=== PATIENT | male | born 1960 | race Caucasian/White ===

== ENCOUNTER 2025-01-08 12:22 | Outpatient (CLI) | payer BC, SELFPAY ==
--- NOTE | ~2025-01-08 | CT_ITS ---
CLINICAL INDICATION: Left flank pain COMPARISON: None. TECHNIQUE: Multiple contiguous axial images of the abdomen and pelvis were performed without the admi nistration of intravenous contrast The dose-length product (DLP) was 783.90 mGy-cm. Automated exposure control and iterative reconstruction technique were employed. FINDINGS/OBSERVATIONS: Visualized lower thorax: Subcentimeter pulmonary nodules detected bilaterally. 4.8 mm within the left lower lobe (axial series, image 26). 4.6 mm in the right lower lobe (axial series, image 28). The remainder of the bilateral lung bases are clear. Follow-up with a dedicated chest CT is suggested unless this is a known finding. The heart is of normal size, without pericardial effusion. Small hiatal hernia is present. Liver: The liver demonstrates homogeneous attenuation and is enlarged measuring 22 cm in longitudinal dimens ion. Gallbladder and biliary system: The gallbladder is only minimally distended, and otherwise unremarkable. Pancreas: Limited evaluation of the pancreas secondary to the lack of intravenous contrast. Spleen: The spleen demonstrates homogeneous attenuation and is enlarged measuring 13 cm in longitudinal dimen kiera. Kidneys: 9 mm nonobstructing calculus within the lower pole of the right kidney. The remainder of the right kidney is unremarkable. The left kidney, collecting system, and ureter are unremarkable. Adrenal glands: Unremarkable. Gastrointestinal tract: Colonic diverticulosis without surrounding inflammatory change. Fecal stasis within the colon. Appendix: The air-filled appendix is of normal caliber (axial series, images 133 through 145) Vasculature: Unremarkable. Lymph nodes: No pathologically enlarged or morphologically suspicious lymph nodes within the retroperitoneum or at the root of the mesentery. Pelvic structures: The bladder is decompressed, limiting its evaluation. The prostate gland is not enlarged. Body wall and musculoskeletal: Small fat-containing umbilical hernia. Degenerative disease within the lumbosacral spine at the level of L5/S1 with osteophyte formation, di sc space narrowing, endplate changes and vacuum phenomena. IMPRESSION: 9 mm nonobstructing calculus within the lower pole of the right kidney. No acute pathology detected within the abdomen or pelvis, as detailed above. Hepatosplenomegaly. Reviewed, dictated and finalized at location A.
--- NOTE | ~2025-01-08 | XR_ITS ---
EXAMINATION: XR abdomen/kub 1V DATE: 01/08/2025 12:54 INDICATION: Calcium kidney stone. TECHNIQUE: A supine view of the abdomen on 2 radiographs was obtained. COMPARISON: CT abdomen and pelvis 01/08/2025 FINDINGS: There are no dilated loops of bowel. There is a 9 mm stone in right kidney. IMPRESSION: 1. 9 mm stone in right kidney. Reviewed, dictated and finalized at location B.
--- OUTSIDE RECORDS SUMMARY | 2025-01-08 13:58 | XMS_ITS | Encounter Summary ---
Author Organization [facility] Health Address [address] [place] [address] Care Team Providers Care Logging Operations Inspector Name Role Phone Marcial Dalal Primary Care Provider Lexy Srivastava MD Primary Care Provider [phone] Reason for Visit * Reason Comments Refill Request Encounter Details Date Type Department Care Team (Late st Contact Info) Description 04/11/2023 Refill [facility] [address] [phone] Heather Mcelroy APRN-CNP [address] [address] Refill Request Social History Tobacco Use Types Packs/Day Years Used Date Smoking Tobacco: Never Smokeless Tobacco: Never Alcohol Use Standard Drinks/Week Comments No 0 (1 standard drink = 0.6 oz pur e alcohol) PHQ-2 Answer Date Recorded PHQ2 TOTAL SCORE 0 03/20/2023 Sex and Gender Information Value Date Recorded Sex Assigned at Not on file Gender Identity Not on file Sexual Orientation Not on file COVID-19 Exposure Response Date Recorded In the last 10 days, have yo u been in contact with someone who was confirmed or suspected to have Coronavirus/COVID-19? No / Unsure 03/20/2023 7:16 AM CDT documented as of this encounter Plan of Treatment Upcoming Encounters Date Type Department Care Team (Late st Contact Info) Description 03/16/2025 10:40 AM CDT Office Visit [facility] - [facility] Medicine [address] [place] [phone] Lexy Srivastava MD [address] [place] [address] documented as of this encounter Visit Diagnoses Diagnosis Seasonal allergies Allergic rhinitis, cause unspecified Acute cough documented in this encounter Additional Health Concerns Infection Onset Date Last Indicated Resolved Time COVID-19 Under Investigation 06/08/2023 06/08/2023 06/09/2023 1:46 AM CDT COVID-19 Confirmed 06/08/2023 06/08/2023 4:33 AM CDT documented as of this encounter Care Teams Logging Operations Inspector Relationship Specialty Start Date End Date Marcial Dalal APRN-RELIGIOUS EDUCATION COORDINATOR [address] [place] [phone] PCP - General Nurse Practitioner Adult Health 01/29/23 12/14/24 Lexy Srivastava MD [address] [place] [address] PCP - General Internal Medicine 12/15/24 documented as of this encounter
--- OUTSIDE RECORDS SUMMARY | 2025-01-08 13:58 | XMS_ITS | Patient Health Record ---
Author Organization [facility] Address [address] [place] [address] Care Team Providers Care Authorization Representative Name Role Phone Lexy Srivastava Primary Care Provider Pelon Marcus Unavailable [phone] ALLERGIES No Known Allergies RESULTS Component Value Reference Range Notes X ray : Lumbar Spine 3 views , AP, Lateral, Spot Reviewed date:12/09/2024 02:59:06 PM Interpretation:218 Performing Lab: Notes/Report: 218 REASON FOR REFERRAL Reason Eval and Treat Diagnosis 1 Low back pain at [facility] (M54.50) Referral Organization [facility] Referring Provider First Name Pelon Referring Provider Last Name Thais Referring Provider Speciality Orthopedic Surgery Referred Provider Specialty Physical The [facility] Referral Priority Routine MEDICATIONS Medication SIG (Take, Route, Fr equency, Duration) Notes Start Date End Date Status Carbidopa-Levodopa A ctive Zinc Active Vitamin D3 Active Turmeric Active Multivitamin Active SOCIAL HISTORY Tobacco Use: Social History Observation Description Date Details (start date - stop date) Never Smoker NA - NA Sex Assigned At : Social History Observation Description Sex Assigned At Unknown Tobacco Use/Smoking Question Answer Notes Are you a nonsmoker Alcohol Screen Question Answer Notes Did you have a drink containing alcohol in the p ast year? No Points 0 Interpretation Negative VITAL SIGNS Height 72 in 12/09/2024 Weight 280 lbs 12/09/2024 BMI 37.97 kg/m2 12/09/2024 PROCEDURES Procedure Date Ordered Date Performed Result Body Sit e Lumbar Selective Nerve Root Injection 12/09/2024 completed Encounters Encounter Location Date Provider Diagnosis [facility] [address] [place] [address] 12/09/2024 Pelon Thais Other low back pain M54.59 and Lumbar radiculopathy M54.16 ASSESSMENTS Encounter Date Diagnosis Assessment Notes Treatment Notes Treatment Clinical Notes 12/09/2024 Other low back pain (ICD-10 - M54.59) 12/09/2024 Lumbar radiculopathy (ICD-10 - M54.16) PLAN OF TREATMENT No Information Insurance Providers Payer Name Payer Address Payer Phone Subscriber Number Group Number Insured Name Patient Relationship to Insured Coverage Start Date Coverage End Date Mikayla [facility] [address] [place] [address] [id number] Ezra Shelby Self - patient is the insured MEDICAL (GENERAL) HISTORY Medical History History ICD Code Parkinson's Surgical History Surgery Date(Month/Year) Knee Arthroplasty Cataract Surgery DBS for Parkinson's Hospitalization History Reason Date(Month/Year) As per above.
--- OUTSIDE RECORDS SUMMARY | 2025-01-08 13:58 | XMS_ITS | Clinical Summary ---
Author Organization [facility] Address [address] [place] [address] Care Team Providers Care Leadite Heater Name Role Phone Unavailable Primary Care Provider Unavailabl e Social History Tobacco Use Types Packs/Day Years Used Date Smoking Tobacco: Never Assessed Sex and Gender Information Value Date Recorded Sex Assigned at Not on file Gender Identity Not on file Sexual Orientation Not on file Plan of Treatment Health Maintenance Due Date Last Done Comments HIV Screening 1960 Hepatitis C Screening ages 18 to 79 once 1960 MMR VACCINES (1 of 1 - Standard series) 1960 DEPRESSION SCREENING 1971 ADULT TETANUS 1978 LIPID TESTING 1994 Colon Cancer Screening 2004 Zoster Vaccine (Recombinant Vaccine) (1 of 2) 2009 Influenza Vaccine 05/29/2024 08/01/2023, , 08/16/2020, Additional history exists COVID-19 Immunization ( season) 2024 Fall Risk Assessment 2024 YEARLY WELLNESS EXAM 03/07/2025 03/07/2024, 10/25/2021, 10/21/2020 RSV Vaccines (1 - 1-dose 75+ series) 2034 Pneumococcal Vaccine: 65+ Years Completed 05/16/2022 Pneumococcal Vaccine: Peds(0 to 5 Years) & At-Risk Patients (6 to 64 Years) Aged Out 05/16/2022 No longer eligi ble based on patient's age to complete this topic HEPATITIS A VACCINES Aged Out No long er eligible based on patient's age to complete this topic HEPATITIS B VACCINES Aged Out No long er eligible based on patient's age to complete this topic HIB VACCINES Aged Out No longer eligi ble based on patient's age to complete this topic HPV VACCINES Aged Out No longer eligi ble based on patient's age to complete this topic IPV VACCINES Aged Out No longer eligi ble based on patient's age to complete this topic MENINGOCOCCAL VACCINE Aged Out No jessica mikhail eligible based on patient's age to complete this topic ROTAVIRUS VACCINES Aged Out No longer eligible based on patient's age to complete this topic
--- OUTSIDE RECORDS SUMMARY | 2025-01-08 13:58 | XMS_ITS | Patient Health Summary ---
Author Organization [facility] Address [address] [place] [address] Care Team Providers Care Web Machine Tender Name Role Phone Lexy Srivastava MD Primary Care Provider [phone] Note from [facility],non-owned Affiliates and Associated Physician Practices is amultiple site organization consisting of ambulatory clinics and hospital sitesin [place], [place], [place] and [place]. This disclosure is being madepursuant to the Care Everywhere program and may not contain all information available regarding this patient. Last updated 18.[facility] Allergies No known active allergies Medications * Be aware that medications may not be up to date on this document. Alwaysverify current medications with the patient. * carbidopa-levodopa (Sinemet) 25-100 MG tablet Take 1 (one) tablet by mouth as directed 3 tabs 6 times a day Neuro prescribes * folic acid-vit B6-vit B12 (Folbee) 2.5-25-1 MG tablet(Started 03/07/2024) Take 1 (one) tablet by mouth once daily 1 refill by 03/07/2025 * predniSONE (Deltasone) 10 MG tablet(Started 09/27/2024) 40 mg po x 1 day, 30 mg po x 3 days, 20 mg po x 3 days, 10 mg po x 3 days * silodosin (Rapaflo) 8 MG capsule(Started 12/04/2024) TAKE 1 (ONE) CAPSULE BY MOUTH DAILY WITH BREAKFAST 1 refill by 12/04/2025 * Cholecalciferol 125 MCG (5000 UT) TBDP Take by mouth. 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 09/29/2019 Resolved Problems Problem Noted Date Diagnosed Date Resolved Date Ataxia 09/29/2019 03/09/2023 Elevated LFTs 05/02/2016 03/09/2023 Sleep apnea 12/06/2015 03/09/2023 Gastroesophageal reflux dise ase without esophagitis 07/27/2015 10/25/2021 Obesity 07/27/2015 03/09/2023 Hyperuricemia 07/27/2015 03/09/2023 Asthma, exercise induced 01/04/2015 Gout 08/04/2013 03/09/2023 Immunizations * COVID MODERNA 12+ yr 50mcg/0.5mL(Given 10/08/2023) * COVID MODERNA BIVALENT 12Y+ 50MCG/0.5ML(Given 07/20/2022) * Covid Moderna primary monovalent 12+ yr 0.5mL(Given 02/06/2022, 08/17/2021, 12/21/2020, 11/17/2020) * HEP A VACCINE, ADULT(Given 07/02/2020) * HEP A/HEP B(Given 05/27/2018) * INFLUENZA VACCINE(Given 08/17/2021, 08/16/2020, 07/21/2019, 08/08/2018, 08/14/2017, 08/11/2016, 09/06/2015, 07/28/2013) * INFLUENZA VACCINE, QUADR. (FLUZONE; FLULAVAL; FLUARIX; AFLURIA QUADRIVALENT; 6MO+), 0.5 ML (IIV4)(Given 08/01/2023, 07/02/2020, 07/27/2018, 07/29/2015) * INFLUENZA VACCINE, TRIV. (FLUZONE; FLULAVAL; FLUARIX; AFLURIA TRIVALENT; 6MO+), 0.5 ML (IIV3)(Given 09/05/2024) * PNEUMOCOCCAL PCV20 CONJ VAC IM(Given 05/16/2022) * Zoster Hzv Vacc Recombinant Inj Im(Given 10/21/2019, 08/01/2019, 04/21/2019) Social History Tobacco Use Types Packs/Day Years Used Date Smoking Tobacco: Never Smokeless Tobacco: Never Tobacco Cessation:Counseling Given: Yes Alcohol Use Standard Drinks/Week Comments No 0 (1 standard drink = 0.6 oz pur e alcohol) PHQ-2 Answer Date Recorded Patient Health Questionnaire-2 Score 1 12/15/2024 Sex and Gender Information Value Date Recorded Sex Assigned at Not on file Gender Identity Not on file Sexual Orientation Not on file Last Filed Vital Signs Vital Sign Reading Time Taken Comments Blood Pressure 111/79 12/15/2024 1:10 PM MANAGER ERP Pulse 75 12/15/2024 1:10 PM MANAGER ERP Temperature 36.7 C (98 F) 12/15/2024 1:10 PM MANAGER ERP Respiratory Rate 18 11/09/2023 10:1 3 AM MANAGER ERP Oxygen Saturation 96% 12/15/2024 1:10 PM MANAGER ERP Inhaled Oxygen Concentration - - Weight 130.9 kg (288 lb 9.6 oz) 12/15/2024 1:10 PM MANAGER ERP Height 182.9 cm (6') 12/15/2024 1:10 PM MANAGER ERP Body Mass Index 39.14 12/15/2024 1:10 PM MANAGER ERP Procedures * US ABDOMEN LIMITED(Performed 12/25/2024) Performed for Elevated liver enzymes * ERYTHROCYTE SEDIMENTATION RATE(Performed 12/16/2024) Performed for Fatigue, unspecified type * VITAMIN D 25-HYDROXY(Performed 12/16/2024) Performed for Encounter to establish care, Fatigue, unspecified type, Parkinson'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 (HCC) * LIPID PROFILE(Performed 12/16/2024) Performed for Encounter to establish care, Fatigue, unspecified type, Parkinson'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 (HCC) * HEMOGLOBIN A1C(Performed 12/16/2024) Performed for Encounter to establish care, Fatigue, unspecified type, Parkinson'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 (HCC) * COMPREHENSIVE METABOLIC PANEL(Performed 12/16/2024) Performed for Encounter to establish care, Fatigue, unspecified type, Parkinson'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 (HCC) * CBC W AUTO DIFFERENTIAL(Performed 12/16/2024) Performed for Encounter to establish care, Fatigue, unspecified type, Parkinson'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 (HCC) * MICROALB/CREAT RATIO URINE RANDOM PANEL(Performed 12/16/2024) Performed for Encounter to establish care, Fatigue, unspecified type, Parkinson'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 (HCC) * IMAGING/RADIOLOGY/XRAY RESULTS ORDER(Performed 12/04/2024) * MRI LUMBAR SPINE WWO CONTRAST(Performed 10/20/2024) Performed for Lumbar radiculitis * XR ORBITS SCREEN FOR MRI(Performed 10/20/2024) Performed for Encounter for imaging to screen for metal prior to MRI * SPLIT NIGHT STUDY(Performed 09/30/2024) Performed for PAUL (obstructive sleep apnea) * MONOCLONAL PROTEIN DETECT SPEP EULALIO IGA/G/M(Performed 09/05/2024) Performed for Other fatigue, Vitamin D deficiency, Arthralgia, unspecified joint * VITAMIN B1(Performed 09/05/2024) Performed for Other fatigue, Vitamin D deficiency, Arthralgia, unspecified joint * MAGNESIUM BLOOD(Performed 09/05/2024) Performed for Other fatigue, Vitamin D deficiency, Arthralgia, unspecified joint * FERRITIN(Performed 09/05/2024) Performed for Other fatigue, Vitamin D deficiency, Arthralgia, unspecified joint * IRON + TRANSFERRIN PANEL(Performed 09/05/2024) Performed for Other fatigue, Vitamin D deficiency, Arthralgia, unspecified joint * C-REACTIVE PROTEIN(Performed 09/05/2024) Performed for Other fatigue, Vitamin D deficiency, Arthralgia, unspecified joint * ERYTHROCYTE SEDIMENTATION RATE(Performed 09/05/2024) Performed for Other fatigue, Vitamin D deficiency, Arthralgia, unspecified joint * VITAMIN D 25-HYDROXY(Performed 09/05/2024) Performed for Other fatigue, Vitamin D deficiency, Arthralgia, unspecified joint * METHYLMALONIC ACID BLOOD(Performed 09/05/2024) Performed for Other fatigue, Vitamin D deficiency, Arthralgia, unspecified joint * FOLATE(Performed 09/05/2024) Performed for Other fatigue, Vitamin D deficiency, Arthralgia, unspecified joint * VITAMIN B12(Performed 09/05/2024) Performed for Other fatigue, Vitamin D deficiency, Arthralgia, unspecified joint * TSH(Performed 09/05/2024) Performed for Other fatigue, Vitamin D deficiency, Arthralgia, unspecified joint * COMPREHENSIVE METABOLIC PANEL(Performed 09/05/2024) Performed for Other fatigue, Vitamin D deficiency, Arthralgia, unspecified joint * CBC W AUTO DIFFERENTIAL(Performed 09/05/2024) Performed for Other fatigue, Vitamin D deficiency, Arthralgia, unspecified joint * URIC ACID BLOOD(Performed 09/05/2024) Performed for Hyperuricemia * PROSTATE SPECIFIC ANTIGEN SCREEN(Performed 09/05/2024) Performed for Screening for prostate cancer * IMAGING/RADIOLOGY/XRAY RESULTS ORDER(Performed 07/29/2024) * IMAGING/RADIOLOGY/XRAY RESULTS ORDER(Performed 07/29/2024) * XR KNEE RIGHT 3VW(Performed 05/26/2024) Performed for Acute pain of right knee * PTT(Performed 03/05/2024) Performed for Parkinson'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 * CBC W AUTO DIFFERENTIAL(Performed 03/05/2024) Performed for Parkinson'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 * PT-INR(Performed 03/05/2024) Performed for Parkinson'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 * COMPREHENSIVE METABOLIC PANEL(Performed 03/05/2024) Performed for Encounter for medication monitoring * URIC ACID BLOOD(Performed 03/05/2024) Performed for Hyperuricemia * MRSA + SA DNA PCR PANEL(Performed 03/05/2024) Performed for Parkinson'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 * VITAMIN B12 FOLATE PANEL(Performed 10/18/2023) Performed for Neuropathy of both feet * HEMOGLOBIN A1C(Performed 10/18/2023) Performed for Neuropathy of both feet * RESPIRATORY PANEL WITH SARS-COV-2 BY PCR (ST)(Performed 06/08/2023) Performed for Close exposure to COVID-19 virus * URIC ACID BLOOD(Performed 03/07/2023) Performed for Hyperuricemia * PROSTATE SPECIFIC ANTIGEN SCREEN(Performed 03/07/2023) Performed for Screening for malignant neoplasm of prostate * COLONOSCOPY(Performed 09/14/2022) * COMPREHENSIVE METABOLIC PANEL(Performed 07/18/2022) Performed for Gout, unspecified cause, unspecified chronicity, unspecified site * CBC W AUTO DIFFERENTIAL(Performed 07/18/2022) Performed for Gout, unspecified cause, unspecified chronicity, unspecified site * URIC ACID BLOOD(Performed 07/18/2022) Performed for Chronic gout without tophus, unspecified cause, unspecified site * SARS-COV-2 (COVID-19) IN HOUSE(Performed 01/02/2022) Performed for Preop examination * SARS-COV-2 (COVID-19) PANEL (SOIL)(Performed 01/02/2022) Performed for Preop examination * LAB RESULTS ORDER(Performed 12/23/2021) * PROSTATE SPECIFIC ANTIGEN SCREEN(Performed 12/13/2021) Performed for Encounter for preventive health examination * LIPID PROFILE(Performed 12/13/2021) Performed for Encounter for preventive health examination * URIC ACID BLOOD(Performed 12/12/2021) Performed for High risk medications (not anticoagulants) long-term use * COMPREHENSIVE METABOLIC PANEL(Performed 12/12/2021) Performed for High risk medications (not anticoagulants) long-term use * CBC W AUTO DIFFERENTIAL(Performed 12/12/2021) Performed for High risk medications (not anticoagulants) long-term use * URIC ACID BLOOD(Performed 09/20/2021) Performed for Chronic gout without tophus, unspecified cause, unspecified site, High risk medications (not anticoagulants) long-term use * COMPREHENSIVE METABOLIC PANEL(Performed 09/20/2021) Performed for Chronic gout without tophus, unspecified cause, unspecified site, High risk medications (not anticoagulants) long-term use * CBC W AUTO DIFFERENTIAL(Performed 09/20/2021) Performed for Chronic gout without tophus, unspecified cause, unspecified site, High risk medications (not anticoagulants) long-term use * URIC ACID BLOOD(Performed 07/15/2021) Performed for Chronic gout without tophus, unspecified cause, unspecified site * LAB RESULTS ORDER(Performed 06/20/2021) * SARS-COV-2 (COVID-19) IN HOUSE(Performed 06/06/2021) Performed for Primary osteoarthritis of right knee * SARS-COV-2 (COVID-19) PANEL (SOIL)(Performed 06/06/2021) Performed for Primary osteoarthritis of right knee * URIC ACID BLOOD(Performed 06/03/2021) Performed for Chronic gout without tophus, unspecified cause, unspecified site * XR FOOT BILAT 2VW(Performed 05/20/2021) Performed for Chronic gout without tophus, unspecified cause, unspecified site, Left foot pain * HLA TYPING B27(Performed 05/20/2021) Performed for Chronic gout without tophus, unspecified cause, unspecified site, Lumbar spondylosis * URIC ACID BLOOD(Performed 05/20/2021) Performed for Chronic gout without tophus, unspecified cause, unspecified site * ERYTHROCYTE SEDIMENTATION RATE(Performed 05/20/2021) Performed for Chronic gout without tophus, unspecified cause, unspecified site * C-REACTIVE PROTEIN(Performed 05/20/2021) Performed for Chronic gout without tophus, unspecified cause, unspecified site * COMPREHENSIVE METABOLIC PANEL(Performed 05/20/2021) Performed for Chronic gout without tophus, unspecified cause, unspecified site * CBC W AUTO DIFFERENTIAL(Performed 05/20/2021) Performed for Chronic gout without tophus, unspecified cause, unspecified site * CT RENAL STONE(Performed 02/11/2021) Performed for Flank pain * URINALYSIS REFLEX MICROSCOPIC REFLEX CULTURE(Performed 02/11/2021) Performed for Flank pain * SARS-COV-2 (COVID-19) IN HOUSE(Performed 01/06/2021) Performed for Exposure to SARS-associated coronavirus * SARS-COV-2 (COVID-19) PANEL (SOIL)(Performed 01/06/2021) Performed for Exposure to SARS-associated coronavirus * PROSTATE SPECIFIC ANTIGEN SCREEN(Performed 10/28/2020) Performed for Encounter for preventive health examination * URIC ACID BLOOD(Performed 10/28/2020) Performed for Encounter for preventive health examination * CBC W AUTO DIFFERENTIAL(Performed 10/28/2020) Performed for Encounter for preventive health examination * LIPID PROFILE(Performed 10/28/2020) Performed for Encounter for preventive health examination * COMPREHENSIVE METABOLIC PANEL(Performed 10/28/2020) Performed for Encounter for preventive health examination * DIFFERENTIAL MANUAL(Performed 10/08/2019) Performed for Hypothyroidism, unspecified type, Hyperhomocysteinemia (HCC) * CHELI BLOOD SCREEN W/REFLEX TITER(Performed 10/08/2019) Performed for Hypothyroidism, unspecified type, Hyperhomocysteinemia (HCC) * ANTI-NEUTROPHIL CYTOPLASMIC ANTIBODY IGG(Performed 10/08/2019) Performed for Hypothyroidism, unspecified type, Hyperhomocysteinemia (HCC) * DNA ANTIBODY DOUBLE STRANDED(Performed 10/08/2019) Performed for Hypothyroidism, unspecified type, Hyperhomocysteinemia (HCC) * SS-A/SS-B (SJOGREN'S) ANTIBODY PANEL(Performed 10/08/2019) Performed for Hypothyroidism, unspecified type, Hyperhomocysteinemia (HCC) * METHYLMALONIC ACID BLOOD(Performed 10/08/2019) Performed for Hypothyroidism, unspecified type, Hyperhomocysteinemia (HCC) * VITAMIN D 25-HYDROXY(Performed 10/08/2019) Performed for Vitamin D deficiency * VITAMIN B12(Performed 10/08/2019) Performed for Hypothyroidism, unspecified type, Hyperhomocysteinemia (HCC) * ALDOLASE(Performed 10/08/2019) Performed for Hypothyroidism, unspecified type, Hyperhomocysteinemia (HCC) * MYOGLOBIN BLOOD(Performed 10/08/2019) Performed for Hypothyroidism, unspecified type, Hyperhomocysteinemia (HCC) * CK BLOOD(Performed 10/08/2019) Performed for Hypothyroidism, unspecified type, Hyperhomocysteinemia (HCC) * GLUTAMIC ACID DECARBOXYLASE (EDUARDO) ANTIBODY(Performed 10/08/2019) Performed for Hypothyroidism, unspecified type, Hyperhomocysteinemia (HCC) * MAGNESIUM BLOOD(Performed 10/08/2019) Performed for Hypothyroidism, unspecified type, Hyperhomocysteinemia (HCC) * C-REACTIVE PROTEIN(Performed 10/08/2019) Performed for Hypothyroidism, unspecified type, Hyperhomocysteinemia (HCC) * ERYTHROCYTE SEDIMENTATION RATE(Performed 10/08/2019) Performed for Hypothyroidism, unspecified type, Hyperhomocysteinemia (HCC) * COMPREHENSIVE METABOLIC PANEL(Performed 10/08/2019) Performed for Hypothyroidism, unspecified type, Hyperhomocysteinemia (HCC) * CBC W MANUAL DIFFERENTIAL(Performed 10/08/2019) Performed for Hypothyroidism, unspecified type, Hyperhomocysteinemia (HCC) * CT RENAL STONE(Performed 08/05/2019) Performed for Flank pain * XR KNEE BILAT 4VW OR MORE(Performed 07/18/2019) Performed for Pain in both knees, unspecified chronicity * C-REACTIVE PROTEIN(Performed 07/08/2019) Performed for Pain in joint, multiple sites, Fatigue, unspecified type * COMPREHENSIVE METABOLIC PANEL(Performed 07/08/2019) Performed for Pain in joint, multiple sites, Fatigue, unspecified type * CBC W AUTO DIFFERENTIAL(Performed 07/08/2019) Performed for Pain in joint, multiple sites, Fatigue, unspecified type * ERYTHROCYTE SEDIMENTATION RATE(Performed 07/08/2019) Performed for Pain in joint, multiple sites, Fatigue, unspecified type * URIC ACID BLOOD(Performed 07/08/2019) Performed for Pain in joint, multiple sites, Fatigue, unspecified type * MRI CERVICAL SPINE WWO CONT(Performed 01/24/2019) Performed for Cervical myelopathy (HCC) * MRI BRAIN WWO CONTRAST(Performed 01/09/2019) Performed for Ataxia * MRI SHOULDER LEFT WO CONTRAST(Performed 01/09/2019) Performed for Left shoulder pain, unspecified chronicity * DIFFERENTIAL MANUAL(Performed 01/03/2019) Performed for Vitamin D deficiency, Vitamin B12 deficiency, Hypothyroidism, unspecified type * LYME DISEASE AB IGG WB(Performed 01/03/2019) Performed for Vitamin D deficiency, Vitamin B12 deficiency, Hypothyroidism, unspecified type * VITAMIN D 25-HYDROXY(Performed 01/03/2019) Performed for Vitamin D deficiency, Vitamin B12 deficiency, Hypothyroidism, unspecified type * VITAMIN B12(Performed 01/03/2019) Performed for Vitamin D deficiency, Vitamin B12 deficiency, Hypothyroidism, unspecified type * METHYLMALONIC ACID BLOOD(Performed 01/03/2019) Performed for Vitamin D deficiency, Vitamin B12 deficiency, Hypothyroidism, unspecified type * FOLATE(Performed 01/03/2019) Performed for Vitamin D deficiency, Vitamin B12 deficiency, Hypothyroidism, unspecified type * RHEUMATOID FACTOR BLOOD QUANTITATIVE(Performed 01/03/2019) Performed for Vitamin D deficiency, Vitamin B12 deficiency, Hypothyroidism, unspecified type * MONOCLONAL PROTEIN DETECT SPEP EULALIO IGA/G/M(Performed 01/03/2019) Performed for Vitamin D deficiency, Vitamin B12 deficiency, Hypothyroidism, unspecified type * CHELI BLOOD SCREEN W/REFLEX TITER(Performed 01/03/2019) Performed for Vitamin D deficiency, Vitamin B12 deficiency, Hypothyroidism, unspecified type * C-REACTIVE PROTEIN(Performed 01/03/2019) Performed for Vitamin D deficiency, Vitamin B12 deficiency, Hypothyroidism, unspecified type * ERYTHROCYTE SEDIMENTATION RATE(Performed 01/03/2019) Performed for Vitamin D deficiency, Vitamin B12 deficiency, Hypothyroidism, unspecified type * T4 FREE(Performed 01/03/2019) Performed for Vitamin D deficiency, Vitamin B12 deficiency, Hypothyroidism, unspecified type * TSH(Performed 01/03/2019) Performed for Vitamin D deficiency, Vitamin B12 deficiency, Hypothyroidism, unspecified type * COMPREHENSIVE METABOLIC PANEL(Performed 01/03/2019) Performed for Vitamin D deficiency, Vitamin B12 deficiency, Hypothyroidism, unspecified type * CBC W MANUAL DIFFERENTIAL(Performed 01/03/2019) Performed for Vitamin D deficiency, Vitamin B12 deficiency, Hypothyroidism, unspecified type * CT RENAL STONE(Performed 11/04/2018) Performed for Flank pain * TESTOSTERONE TOTAL(Performed 03/08/2018) * CBC W AUTO DIFFERENTIAL(Performed 02/27/2018) Performed for Other fatigue * TSH(Performed 02/27/2018) Performed for Other fatigue * TESTOSTERONE FREE+TOT MALE PANEL(Performed 02/27/2018) Performed for Other fatigue * PROSTATE SPECIFIC ANTIGEN SCREEN(Performed 02/27/2018) Performed for Prostate cancer screening * LIPID PROFILE(Performed 02/27/2018) Performed for Other fatigue * COMPREHENSIVE METABOLIC PANEL(Performed 02/27/2018) Performed for Other fatigue * XR CHEST 2VW(Performed 02/13/2018) Performed for Wheezing * CBC W AUTO DIFFERENTIAL(Performed 03/12/2017) Performed for Visit for preventive health examination * URIC ACID BLOOD(Performed 03/12/2017) Performed for Visit for preventive health examination * PROSTATE SPECIFIC ANTIGEN SCREEN(Performed 03/12/2017) Performed for Visit for preventive health examination * LIPID PROFILE(Performed 03/12/2017) Performed for Visit for preventive health examination * COMPREHENSIVE METABOLIC PANEL(Performed 03/12/2017) Performed for Visit for preventive health examination * XR LUMBAR SPINE COMPL 6VWS(Performed 05/15/2016) Performed for Lumbar herniated disc, Chronic left-sided low back pain with left- sided sciatica * MRI LUMBAR SPINE WO CONTRAST(Performed 05/09/2016) Performed for Chronic low back pain with sciatica, sciatica laterality unspecified, unspecified back pain laterality * XR EYE FOREIGN BODY(Performed 05/09/2016) Performed for Chronic low back pain with sciatica, sciatica laterality unspecified, unspecified back pain laterality, Encounter for imaging to screen for metal prior to magnetic resonance imaging (MRI) * HEPATITIS SCREEN ACUTE W/ REFLX CONFIRM(Performed 05/02/2016) Performed for Elevated LFTs * URIC ACID BLOOD(Performed 05/02/2016) Performed for Gouty arthritis of toe, unspecified laterality * COMPREHENSIVE METABOLIC PANEL(Performed 05/02/2016) Performed for High risk medication use * US ABDOMEN LIMITED(Performed 04/18/2016) Performed for Elevated LFTs * IRON + TRANSFERRIN PANEL(Performed 04/13/2016) Performed for Elevated LFTs * FERRITIN(Performed 04/13/2016) Performed for Elevated LFTs * CHELI BLOOD SCREEN W/REFLEX TITER(Performed 04/13/2016) Performed for Elevated LFTs * HEPATIC FUNCTION PANEL(Performed 04/13/2016) Performed for High risk medication use, Asthma, exercise induced (HCC), Gastroesophageal reflux disease without esophagitis, Hyperuricemia * URIC ACID BLOOD(Performed 04/13/2016) Performed for High risk medication use, Asthma, exercise induced (HCC), Gastroesophageal reflux disease without esophagitis, Hyperuricemia * PROSTATE SPECIFIC ANTIGEN DIAGNOSTIC(Performed 04/13/2016) Performed for High risk medication use, Asthma, exercise induced (HCC), Gastroesophageal reflux disease without esophagitis, Hyperuricemia * COMPREHENSIVE METABOLIC PANEL(Performed 04/13/2016) Performed for High risk medication use, Asthma, exercise induced (HCC), Gastroesophageal reflux disease without esophagitis, Hyperuricemia * CBC W AUTO DIFFERENTIAL(Performed 04/13/2016) Performed for High risk medication use * B-TYPE NATRIURETIC PEPTIDE(Performed 12/27/2014) Performed for Cough * D-DIMER(Performed 12/27/2014) Performed for Cough * COMPREHENSIVE METABOLIC PANEL(Performed 12/27/2014) Performed for Cough * CBC W AUTO DIFFERENTIAL(Performed 12/27/2014) Performed for Cough * XR CHEST 2VW(Performed 12/27/2014) Performed for Cough * INFLUENZA A+B - POINT OF CARE (AMB)(Performed 11/30/2014) Performed for Myalgia and myositis, Cough, Bronchitis, acute * POLYSOMNOGRAPHY 4 OR MORE PARAMETERS(Performed 10/06/2014) * POLYSOMNOGRAPHY 4 OR MORE PARAMETERS(Performed 07/08/2014) * REF LAB-SPECIMEN STATUS REPORT(Performed 07/01/2014) * TSH(Performed 07/01/2014) Performed for Fatigue * URIC ACID BLOOD(Performed 07/01/2014) Performed for Hyperuricemia * ERYTHROCYTE SEDIMENTATION RATE(Performed 07/01/2014) Performed for Arthralgia * CBC W AUTO DIFFERENTIAL(Performed 07/01/2014) Performed for Arthralgia * LIPID PROFILE(Performed 07/01/2014) Performed for Hyperuricemia * COMPREHENSIVE METABOLIC PANEL(Performed 07/01/2014) Performed for Arthralgia * LAB RESULTS ORDER(Performed 10/30/2012) * LAB RESULTS ORDER(Performed 08/08/2012) * LAB RESULTS ORDER(Performed 08/08/2011) * LAB RESULTS ORDER(Performed 08/06/2009) * LAB RESULTS ORDER(Performed 05/18/2008) Results * US ABDOMEN LIMITED (12/25/2024 9:08 AM MANAGER ERP) Only the most recent of2 resultswithin the time period is included. Anatomical Region Laterality Modality Abdomen Ultrasound 12/25/2024 10:2 9 AM MANAGER ERP Impressions 12/25/2024 10:30 AM MANAGER ERP IMPRESSION: Fatty liver. No cholelithiasis or cholecystitis > Interpreting Provider: Janes Oakley MD on 12/25/2024 10:30 AM Narrative 12/25/2024 10:30 AM MANAGER ERP PROCEDURE: US ABDOMEN LIMITED DATE/TIME OF EXAM: 12/25/2024 9:08 AM CLINICAL INFORMATION: None relevant/not provided if blank. Indication: R74.8: Elevated liver enzymes Additional History: COMPARISON: None. TECHNIQUE: Real-time ultrasound of the upper abdomen with DICOM image capture performed by manufacturing engineering technologist. FINDINGS: No intrahepatic ductal dilatation or mass lesions Fatty hepatic degeneration No evidence of cholelithiasis. CBD 5 mm GB wall thickness 2 mm Hepatopetal blood flow.-Portal vein. Nonvisualization of pancreas. Unremarkable right kidney IVC. RIGHT KIDNEY: 12 x 6 x 6 cm Procedure Note Janes Oakley MD - 12/25/2024 PROCEDURE: US ABDOMEN LIMITED DATE/TIME OF EXAM: 12/25/2024 9:08 AM CLINICAL INFORMATION: None relevant/not provided if blank. Indication: R74.8: Elevated liver enzymes Additional History: COMPARISON: None. TECHNIQUE: Real-time ultrasound of the upper abdomen with DICOM image capture performed by manufacturing engineering technologist. FINDINGS: No intrahepatic ductal dilatation or mass lesions Fatty hepatic degeneration No evidence of cholelithiasis. CBD 5 mm GB wall thickness 2 mm Hepatopetal blood flow.-Portal vein. Nonvisualization of pancreas. Unremarkable right kidney IVC. RIGHT KIDNEY: 12 x 6 x 6 cm IMPRESSION: Fatty liver. No cholelithiasis or cholecystitis > Interpreting Provider: Janes Oakley MD on 12/25/2024 10:30 AM Lexy Srivastava MD US ORDERABLES * MICROALB/CREAT RATIO URINE RANDOM PANEL (12/16/2024 7:36 AM MANAGER ERP) Creatinine Urine 173.8 mg/dL 12/16/19 12:28 PM MANAGER ERP [facility] Microalbumin Urine 0.8 mg/dL 12/16/2024 12:28 PM MANAGER ERP [facility] Microalbumin/Crea tinine Ratio <5 Normal: <30 mg/g, Microalbum inuria: 30-299 mg/g, Macroalbum inuria: >=300 mg/g mg/g 12/16/2024 12:28 PM MANAGER ERP [facility] Urine URINE SPECIMEN OBTAINED BY CLEAN CATCH PROCEDURE / Unknown Collection / Unknown 12/16/2024 7:36 AM MANAGER ERP 12/16/2024 7:36 AM MANAGER ERP Lexy Srivastava MD LAB - URINE CHEMISTR Y ORDERABLES Performing Organization Address City/State/[facility] Co de Phone Number [facility] [address] * (ABNORMAL) HEMOGLOBIN A1C (12/16/2024 7:36 AM MANAGER ERP) Only the most recent of2 resultswithin the time period is included. Hemoglobin A1c 5.7(H) 4.2 - 5.6 % 12/16/2024 12:27 PM MANAGER ERP [facility] Estimated Average Glucose 117 mg/dL 12/16/2024 12:27 PM [facility] Blood BLOOD SPECIMEN WITH EDTA / Unknown Venipuncture / Unknown 12/16/2024 7:36 AM MANAGER ERP 12/16/2024 7:36 AM MANAGER ERP Narrative [facility] - 12/16/2024 12:27 PM MANAGER ERP HbA1c Interpretation: Normal: < 5.7% Pre-diabetes: 5.7-6.4% Diabetes: Equal to or greater than 6.5% Test results diagnostic of diabetes should be repeated for confirmation. Treatment target values recommended by ADA and other clinical organizations should be used to evaluate metabolic control in patients. This test should not replace glucose testing for patients with Type 1 diabetes, pediatric patients, or women. Falsely low HbA1c results may be observed in patients with clinical conditions that shorten erythrocyte life span or decrease mean erythrocyte age such as the presence of unstable hemoglobin variants, elevated hemoglobin F level or other causes of hemolytic anemia. HbA1c may not accurately reflect glycemic control when clinical conditions that affect erythrocyte survival are present. Severe Iron deficiency anemia may yield falsely high results. Hemoglobin A1c assay should not be used to diagnose or monitor diabetes in patients with malignancy, recent blood transfusion, chronic kidney or liver disease. This method may yield falsely low results when hemoglobin (HbF) exceeds 5% in the specimen. The Gonzalez Alinity assay for the measurement of HbA1c is a National Glycohemoglobin Standardization Program (NGSP) certified method. Lexy Srivastava MD LAB - CHEMISTRY ROSS [facility] Performing Organization Address City/[facility] Co de Phone Number [facility] [address] * VITAMIN D 25-HYDROXY (12/16/2024 7:36 AM MANAGER ERP) Only the most recent of4 resultswithin the time period is included. Pathologist [facility] Vitamin D, 25 Hydroxy 44.1 30 - 80 ng/mL 12/16/2024 12:41 PM MANAGER ERP [facility] Blood BLOOD SPECIMEN / Unknown Venipuncture / Unknown 12/16/2024 7:36 AM MANAGER ERP 12/16/2024 7:36 AM MANAGER ERP Lexy Srivastava MD LAB - CHEMISTRY ROSS CHAUDHARY Performing Organization Address [facility] de Phone Number [facility] [address] * ERYTHROCYTE SEDIMENTATION RATE (12/16/2024 7:36 AM MANAGER ERP) Only the most recent of7 resultswithin the time period is included. Pathologist [facility] Erythrocyte Sedimentation Rate Automated 4 <20 MM/HR 12/16/2024 12:08 PM MANAGER ERP [facility] Blood BLOOD SPECIMEN / Unknown Venipuncture / Unknown 12/16/2024 7:36 AM MANAGER ERP 12/16/2024 7:36 AM MANAGER ERP Lexy Srivastava MD LAB - HEMATOLOGY ORD ERACATARINO Performing Organization Address City/[facility] Co de Phone Number [facility] [address] * CBC WITH DIFFERENTIAL (12/16/2024 7:[address] [facility]) Only the most recent of14 resultswithin the time period is included. WBC 8.5 4.0 - 10.7 x10E9/L 12/16/2024 11:53 AM [facility] RBC Count 4.92 4.30 - 5.80 x10E12/L 12/16/2024 11:53 AM [facility] Hemoglobin 15.0 13.3 - 17.5 g/dL 12/16/2024 11:53 AM [facility] Hematocrit 45.1 38.7 - 51.1 % 12/16/2024 11:53 AM [facility] MCV 91.7 80.0 - 98.0 fL 12/16/2024 11:53 AM [facility] MCH 30.5 26.7 - 33.6 pg 12/16/2024 11:53 AM [facility] MCHC 33.3 31.7 - 36.3 g/dL 12/16/2024 11:53 AM [facility] RDW-CV 12.4 11.3 - 14.8 % 12/16/2024 11:53 AM [facility] Platelet Count 276 150 - 420 x10E9/L 12/16/2024 11:53 AM [facility] MPV 10.2 7.8 - 11.4 fL 12/16/2024 11:53 AM [facility] Neutrophil % 63.1 41.0 - 74.0 % 12/16/2024 11:53 AM [facility] Lymphocyte % 23.6 17.0 - 47.0 % 12/16/2024 11:53 AM [facility] Monocyte % 8.3 3.0 - 11.0 % 12/16/2024 11:53 AM [facility] Eosinophil % 4.0 0.0 - 7.0 % 12/16/2024 11:53 AM [facility] Basophil % 0.8 0.0 - 1.6 % 12/16/2024 11:53 AM [facility] Immature Granulocytes % 0.2 0.0 - 1.0 % 12/16/2024 11:53 AM [facility] Neutrophil Absolute 5.37 1.60 - 7.50 x10E9/L 12/16/2024 11:53 AM [facility] Lymphocyte Absolute 2.01 1.00 - 4.40 x10E9/L 12/16/2024 11:53 AM [facility] Monocyte Absolute 0.71 0.15 - 1.00 x10E9/L 12/16/2024 11:53 AM [facility] Eosinophil Absolute 0.34 0.00 - 0.60 x10E9/L 12/16/2024 11:53 AM [facility] Basophil Absolute 0.07 0.00 - 0.13 x10E9/L 12/16/2024 11:53 AM [facility] Blood BLOOD SPECIMEN / Unknown Venipuncture / Unknown 12/16/2024 7:36 AM MANAGER ERP 12/16/2024 7:36 AM MANAGER ERP Lexy Srivastava MD LAB - HEMATOLOGY ORD ERABLES [facility] [address] * (ABNORMAL) COMPREHENSIVE METABOLIC PANEL (12/16/2024 7:36 AM MANAGER ERP) Only the most recent of17 resultswithin the time period is included. Glucose 122 70 - 125 mg/dL 12/16/2024 12:08 PM [facility] Sodium 142 136 - 145 mmol/L 12/16/2024 12:08 PM [facility] Potassium 4.4 3.4 - 5.1 mmol/L 12/16/2024 12:08 PM [facility] Chloride 104 98 - 107 mmol/L 12/16/2024 12:08 PM [facility] CO2 28 22 - 29 mmol/L 12/16/2024 12:08 PM [facility] Calcium 10.19 8.4 - 10.2 mg/dL 12/16/2024 12:08 PM [facility] Anion Gap 10 6 - 16 mmol/L 12/16/2024 12:08 PM [facility] BUN 16.4 8.4 - 25.7 mg/dL 12/16/2024 12:08 PM [facility] Creatinine 1.01 0.72 - 1.25 mg/dL 12/16/2024 12:08 PM [facility] Alkaline Phosphatase 46 40 - 150 U/L 12/16/2024 12:08 PM MANAGER ERP [facility] ALT 70(H) <=55 U/L 12/16/2024 12:08 PM [facility] AST 54(H) 5 - 34 U/L 12/16/2024 12:08 PM [facility] Protein Total 8.0 6.4 - 8.3 gm/dL 12/16/2024 12:08 PM [facility] Albumin 4.4 3.4 - 4.8 gm/dL 12/16/2024 12:08 PM [facility] Globulin Total 3.6 2.6 - 4.0 gm/dL 12/16/2024 12:08 PM [facility] Albumin/Globulin Ratio 1.2 0.9 - 1.6 12/16/2024 12:08 PM [facility] Bilirubin Total 0.8 0.2 - 1.2 mg/dL 12/16/2024 12:08 PM [facility] eGFR 83(L) >90 mL/min/1.7 3m2 12/16/2024 12:08 PM [facility] Comment:The GFR result was c alculated using the updated CKD-EPI Creatinine Equation (2020). Blood BLOOD SPECIMEN / Unknown Venipuncture / Unknown 12/16/2024 7:36 AM MANAGER ERP 12/16/2024 7:36 AM MANAGER ERP Lexy Srivastava MD LAB - CHEMISTRY ROSS [facility] Organization Address City/State/[facility] Co de Phone Number [facility] [address] * (ABNORMAL) LIPID PROFILE (12/16/2024 7:36 AM MANAGER ERP) Only the most recent of6 resultswithin the time period is included. Cholesterol 156 <200 mg/dL 12/16/2024 12:08 PM [facility] Triglycerides 109 <150 mg/dL 12/16/2024 12:08 PM [facility] HDL Cholesterol 38(L) >40 mg/dL 12:08 PM [facility] Chol HDL Ratio 4.1 1.0 - 6.0 12/16/2024 12:08 PM [facility] LDL Calculated 96 65 - 130 mg/dL 12/16/2024 12:08 PM [facility] VLDL Calculated 22 <=30 mg/dL 12:08 PM [facility] Blood BLOOD SPECIMEN / Unknown Venipuncture / Unknown 12/16/2024 7:[address] [facility] 12/16/2024 7:36 AM [facility] - 12/16/2024 12:[address] [facility] Lipid Profile Comment: CHOLESTEROL LEVEL..................CLINICAL INTERPRETATION LESS THAN 200 MG/DL..............................DESIRABLE 200-239 MG/DL..............................BORDERLINE HIGH GREATER THAN 240 MG/DL................................HIGH LDL-CHOLESTEROL LEVEL..............CLINICAL INTERPRETATION LESS THAN 100 MG/DL................................OPTIMAL 100-129 MG/DL.................................NEAR OPTIMAL GREATER THAN 160 MG/DL...........................HIGH RISK HDL RISK LEVEL GREATER THEN 60 MG/DL............................DECREASED 40-60 MG/DL........................................AVERAGE LESS THAN 40 MG/DL...............................INCREASED TRIGLYCERIDE LEVEL..................CLINICAL INTERPRETATION LESS THAN 150 MG/DL...............................DESIRABLE 150-199 MG/DL...............................BORDERLINE HIGH 200-499 MG/DL..........................................HIGH GREATER THAN 500..................................VERY HIGH THE NATIONAL CHOLESTEROL EDUCATION PROGRAM HAS SET THE ABOVE GUIDELINES (REFERANCE VALUES) FOR CHOLESTEROL AND HDL. RISK ASSOCIATED WITH CHOLESTEROL/HDL RATIOS RISK....................MALE RATIO.............FEMALE RATIO 1/2 AVERAGE.................<3.4.......................<3.3 LOW RISK.................... 4.0 ...................... 3.8 AVERAGE..................... 5.0 ...................... 4.5 2X AVERAGE.................. 9.5 ...................... 7.0 3X AVERAGE...................>23........................>11 Lexy Srivastava MD LAB - CHEMISTRY ROSS CHAUDHARY [facility] [address] [place] [address], [facility] * IMAGING RADIOLOGY XRAY RESULTS ORDER (12/04/2024) Only the most recent of3 resultswithin the time period is included. Anatomical Region Laterality Modality Other 12/04/2024 Narrative 12/04/2024 Ordered by an unspecified provider. Scanned Document IMAGING * MRI LUMBAR SPINE W WO CONTRAST [id number] (10/20/2024 7:02 PM MANAGER ERP) Anatomical Region Laterality Modality Spine Magnetic Resonan ce 10/24/2024 1:34 PM MANAGER ERP Impressions 10/24/2024 1:45 PM MANAGER ERP IMPRESSION: 1. New left foraminal disc extrusion at L5-S1. This severely narrows the left foramen and may impinge the exiting left L5 nerve root. 2. Resolving disc herniations on the left at L3-4 and L5-S1. 3. No significant spinal canal stenosis. Multilevel foraminal narrowing, as detailed in the body the report. > Interpreting Provider: Tenzin Markham DO on 10/24/2024 1:45 PM Narrative 10/24/2024 1:45 PM MANAGER ERP PROCEDURE: MRI LUMBAR SPINE WWO CONTRAST DATE/TIME OF EXAM: 10/20/2024 7:02 PM EXAM: MRI Lumbar Spine with and without contrast INDICATION: Low back pain. COMPARISON: Lumbar MRI 05/09/2016. TECHNIQUE: Multiplanar, multisequence magnetic resonance imaging of the lumbar spine performed with and without 20 cc of MultiHance. FINDINGS: For purposes of this dictation the lowest fully developed disc space is considered to be L5-S1. Alignment and curvature is normal. There is no compression fracture. No edema or marrow replacement. Moderate disc degeneration favors L4-5 and L5-S1. Conus terminates at L1-2 and is unremarkable. No cord tethering lesion is identified. No MR findings of arachnoiditis. No intrathecal or nerve root enhancement is identified. Review of the axial imaging at each individual disc level shows: L1-L2: Annular bulge and facet arthropathy with ligamentous thickening. No developing spinal canal or lateral recess stenosis. No foraminal narrowing. L2-L3: Annular disc bulge with facet arthropathy and ligamentous thickening. Flattening the ventral thecal sac but without spinal canal or significant foraminal stenosis. L3-L4: Annular disc bulge with mild facet hypertrophy and ligamentous thickening but no spinal canal or lateral recess stenosis. The left subarticular protrusion has since resolved. Mild bilateral foraminal narrowing. L4-L5: Annular disc bulge with facet arthropathy and ligamentous thickening. No spinal canal or lateral recess stenosis. Mild right and moderate left foraminal narrowing. L5-S1: Annular disc bulge and facet arthropathy. Near completely resolved left subarticular disc extrusion abutting the descending S1 nerve root. There is suspicion for a left foraminal disc extrusion currently with cranial migration of the foramen. This severely narrows the left foramen and could impinge the exiting left L5 nerve root currently. Moderate right foraminal stenosis as well. Paravertebral soft tissues are unremarkable. Procedure Note Tenzin Markham DO - 10/24/2024 PROCEDURE: MRI LUMBAR SPINE WWO CONTRAST DATE/TIME OF EXAM: 10/20/2024 7:02 PM EXAM: MRI Lumbar Spine with and without contrast INDICATION: Low back pain. COMPARISON: Lumbar MRI 05/09/2016. TECHNIQUE: Multiplanar, multisequence magnetic resonance imaging of the lumbar spine performed with and without 20 cc of MultiHance. FINDINGS: For purposes of this dictation the lowest fully developed disc space is considered to be L5-S1. Alignment and curvature is normal. There is no compression fracture. No edema or marrow replacement. Moderate disc degeneration favors L4-5 and L5-S1. Conus terminates at L1-2 and is unremarkable. No cord tethering lesionis identified. No MR findings of arachnoiditis. No intrathecal or nerveroot enhancement is identified. Review of the axial imaging at each individual disc level shows: L1-L2: Annular bulge and facet arthropathy with ligamentous thickening.No developing spinal canal or lateral recess stenosis. No foraminalnarrowing. L2-L3: Annular disc bulge with facet arthropathy and ligamentous thickening. Flattening the ventral thecal sac but without spinal canalor significant foraminal stenosis. L3-L4: Annular disc bulge with mild facet hypertrophy and ligamentous thickening but no spinal canal or lateral recess stenosis. The left subarticular protrusion has since resolved. Mild bilateral foraminal narrowing. L4-L5: Annular disc bulge with facet arthropathy and ligamentous thickening. No spinal canal or lateral recess stenosis. Mild right and moderate left foraminal narrowing. L5-S1: Annular disc bulge and facet arthropathy. Near completelyresolved left subarticular disc extrusion abutting the descending S1 nerve root. There is suspicion for a left foraminal disc extrusion currently with cranial migration of the foramen. This severely narrows the left foramen and could impinge the exiting left L5 nerve root currently. Moderateright foraminal stenosis as well. Paravertebral soft tissues are unremarkable. IMPRESSION: 1. New left foraminal disc extrusion at L5-S1. This severely narrows the left foramen and may impinge the exiting left L5 nerve root. 2. Resolving disc herniations on the left at L3-4 and L5-S1. 3. No significant spinal canal stenosis. Multilevel foraminal narrowing,as detailed in the body the report. > Interpreting Provider: Tenzin Markham DO on 10/24/2024 1:45 PM Salvador Lombardi MD MR ORDERABLES * XR EYE FOREIGN BODY [id number] (10/20/2024 5:40 PM MANAGER ERP) Anatomical Region Laterality Modality Head Computed Radiogr aphy 10/20/2024 5:51 PM MANAGER ERP Impressions 10/20/2024 5:52 PM MANAGER ERP IMPRESSION: Examination is negative for foreign body. > Interpreting Provider: Janes Oakley MD on 10/20/2024 5:52 PM Narrative 10/20/2024 5:52 PM MANAGER ERP PROCEDURE: XR ORBITS SCREEN FOR MRI 10/20/2024 5:51 PM HISTORY: Z01.89: Encounter for other specified special examinations. FINDINGS AND IMPRESSION: COMPARISON: No comparison. FINDINGS: No evidence of radiopaque or metallic foreign body. Paranasal sinuses are clear. Procedure Note Janes Oakley MD - 10/20/2024 PROCEDURE: XR ORBITS SCREEN FOR MRI 10/20/2024 5:51 PM HISTORY: Z01.89: Encounter for other specified special examinations. FINDINGS AND IMPRESSION: COMPARISON: No comparison. FINDINGS: No evidence of radiopaque or metallic foreign body. Paranasal sinuses are clear. IMPRESSION: Examination is negative for foreign body. > Interpreting Provider: Janes Oakley MD on 10/20/2024 5:52 PM Janes Oakley MD DIAGNOSTIC IMAGING O RDERABLES * SPLIT NIGHT STUDY (09/30/2024 11:59 PM MANAGER ERP) Narrative [facility] - 09/30/2024 11:59 PM MANAGER ERP Erika Barber DO 10/08/2024 9:18 AM POLYSOMNOGRAPHY REPORT [place], [place] Patient Information: Name: Ezra Shelby Date of : 1960 Age: [age] year old Gender: male Weight: 288 lb Height: 6 ft BMI: 39 Ordered by: Erika Barber Date of Study: 09/30/24 Clinical Note & Conditions of Recording: Polysomnography was performed on this 63 year old male with a history of Parkinson's, PAUL. The following were recorded: right and left electrooculogram, frontal, central, and occipital electroencephalogram, chin electromyogram, right and left anterior tibial electromyogram, nasal and oral airflow, snore sensor, body position, thoracic and abdominal respiratory effort by respiratory inductance plethysmography belts, oxygen saturation, electrocardiogram, and pulse rate overnight between 8:01 p.m. and 2:40 a.m. hours and analyzed manually. Staging and scoring as defined by the recommended guidelines in [place] [employer] Manual for Scoring Sleep. Summary of Sleep Parameters: Total Recording Time: 6.6 hours Total Sleep Time: 3.2 hours Latency to Sleep Onset: 4.5 minutes Latency to REM: 183.5 minutes Sleep Efficiency: 48% Sleep Summary: Sleep Stages Time (min) % TST N1 18.5 min. 10 % N2 112.5 min. 59 % N3 50.0 min. 26 % REM 9.0 min. 5 % Wake 211.5 min. Arousal Number: 30 Arousal Index: 9/hr Respiratory Summary: Obstructive Apnea: 1 Central Apnea: 0 Mixed Apnea: 0 Hypopnea: 29 Apnea Hypopnea Index (AHI): 9 events/hr Respiratory events by Stage: REM AHI 33 events/hr Respiratory events by Position: entire night spent supine Oximetry Analysis: Baseline O2 (average value during sleep): 95% Lowest SaO2 during sleep: 90% Fractional breakdowns during sleep: no hypoxemia Leg Movement Summary: Limb movements/hr: not significant Cardiac Summary: Average pulse rate (BPM): 67 Minimum pulse rate: 51 Maximum pulse rate: 82 Abnormalities noted: none SUMMARY: AHI: 9 events/hr REM AHI 33 events/hr O2 Celestine: 90% Snoring: moderate Sleep Structure: very limited REM sleep recorded, significant wake after sleep onset, poor sleep efficiency, short sleep onset latency (4.5 min) Leg Movements: not significant EEG: No parasomnias or grossly abnormal EEG activity on the limited EEG montage ECG: normal sinus rhythm Director Of Social Media Marketing's Comments: did not qualify for split night study Impression: This diagnostic polysomnogram was performed this 63 year old patient with a history of Parkinson's and PAUL. This study was technically adequate. The findings indicate obstructive sleep apnea, severe in REM sleep. The baseline AHI (apnea/hypopnea index) for this record was 9 events/hr. The oxygen celestine was 90%. There was both very limited REM sleep recorded. No EEG abnormalities were noted on the limited montage. No significant ECG abnormalities were noted. Recommendations: Treatment options include PAP therapy vs oral appliance. Patient should be counseled to defer driving while drowsy. I have conducted an epoch by epoch review of the entire raw data. Hypopneas were calculated based upon 30% drop in gain and minimum of 3 percent drop in oxygen saturation or EEG arousal (minimum of 3 seconds long) based on standard recommended AASM scoring criteria. Electronically signed on 10/08/24 by: Erika Barber DO, FAAP Boarded in Sleep Medicine [facility] [address] [place] [id number] Erika Barber DO SLEEP CENTER ORDERAB LES [facility] * (ABNORMAL) MONOCLONAL PROTEIN DETECT SPEP EULALIO IGA/G/M (09/05/2024 2:22 PM MANAGER ERP) Only the most recent of2 resultswithin the time period is included. EER Monoclonal Protein + FLC See Note 09/09/2024 11:[address] [facility]) Comment: Authorized individuals can access the [facility] Enhanced Report using the following link: [email or web address] Performed By: [employer] [address] [place] [id number] Engineering Program Manager: Kiko Hu MD, PhD CLIA Number: [id number] Total Protein 7.6 6.3 - 8.2 g/dL 09/09/2024 11:[address] [facility]) Albumin 4.41 3.75 - 5.01 g/dL 09/09/2024 11:[address] [facility]) Alpha-1 Globulin 0.26 0.19 - 0.46 g/dL 09/09/2024 11:[address] [facility]) Kjrsy-9-Jqiwivnk 0.82 0.48 - 1.05 g/dL 09/09/2024 11:[address] [facility]) Beta-Globulin 1.00 0.48 - 1.10 g/dL 09/09/2024 11:[address] [facility]) Gamma Globulin 1.12 0.62 - 1.51 g/dL 09/09/2024 11:[address] [facility]) Immunofixation EULALIO Done 09/09/2024 11:[address] [facility]) IgG 1131 768 - 1632 mg/dL 09/09/2024 11:[address] [facility]) IgA 412(H) 68 - 408 mg/dL 09/09/2024 11:[address] [facility]) IgM 81 35 - 263 mg/dL 09/09/2024 11:[address] [facility]) Monoclonal Protein Not Applicable <=0.00 g/dL 09/09/2024 11:[address] [facility]) [place] Quant Free Light Chain 22.00(H) 3.30 - 19.40 mg/L 09/09/2024 11:[address] [facility]) Comment: INTERPRETIVE INFORMATION: [place] Qnt Free Light Chains Undetected antigen excess is a rare event but cannot be excluded. Free light chain results should always be interpreted in conjunction with other clinical and laboratory findings. Lambda Free Light Chain Quantitative 17.17 5.71 - 26.30 mg/L 09/09/2024 11:05 AM [facility] [employer] ([facility]) Comment: INTERPRETIVE INFORMATION: Lambda Qnt Free Light Chains Undetected antigen excess is a rare event but cannot be excluded. Free light chain results should always be interpreted in conjunction with other clinical and laboratory findings. [place]/Lambda Free Light Chain ratio 1.28 0.26 - 1.65 09/09/2024 11:05 AM [facility] [employer] ([facility]) Interpretation EULALIO See Note 09/09/2024 11:05 AM [facility] ([facility]) Comment: Normal SPEP pattern. EULALIO gel shows a normal pattern; no monoclonal proteins seen. Blood BLOOD SPECIMEN / Unknown Venipuncture / Unknown 09/05/2024 2:22 PM MANAGER ERP 09/05/2024 2:32 PM MANAGER ERP Salvador Lombardi MD LAB - CHEMISTRY ORDERABLES [facility] ([facility]) [address] [place], [place] [address] * URIC ACID BLOOD (09/05/2024 2:22 PM MANAGER ERP) Only the most recent of15 resultswithin the time period is included. Pathologist [facility] Uric Acid 6.9 3.7 - 7.7 mg/dL 09/05/2024 2:53 PM MANAGER ERP [facility] Blood BLOOD SPECIMEN / Unknown Venipuncture / Unknown 09/05/2024 2:22 PM MANAGER ERP 09/05/2024 2:32 PM MANAGER ERP Marcial Dalal APRN-TELESCOPE MAINTENANCE LAB - CHEMISTRY ORDERABLES [facility] [address] [place], [place] [address] * C-REACTIVE PROTEIN (09/05/2024 2:22 PM MANAGER ERP) Only the most recent of5 resultswithin the time period is included. C-Reactive Protein 0.22 <=0.50 mg/dL 09/05/2024 2:53 PM MANAGER ERP [facility] Blood BLOOD SPECIMEN / Unknown Venipuncture / Unknown 09/05/2024 2:22 PM MANAGER ERP 09/05/2024 2:32 PM MANAGER ERP Salvador Lombardi MD LAB - CHEMISTRY ORDERABLES Performing Organization Address [facility] de Phone Number [facility] [address] * METHYLMALONIC ACID BLOOD (09/05/2024 2:22 PM MANAGER ERP) Only the most recent of3 resultswithin the time period is included. [facility] Methylmalonic Acid 0.14 0.00 - 0.40 umol/L 09/10/2024 4:29 PM MANAGER ERP [employer] ([facility]) Comment: INTERPRETIVE INFORMATION: MMA Serum/Plasma, Vitamin B12 Status This test was developed and its performance characteristics determined by [facility]. It has not been cleared or approved by the US Food and Drug Administration. This test was performed in a CLIA certified laboratory and is intended for clinical purposes. Performed By: [facility] [address] [place] [address] Engineering Program Manager: Kiko Hu MD, PhD CLIA Number: [id number] Blood BLOOD SPECIMEN / Unknown Venipuncture / Unknown 09/05/2024 2:22 PM MANAGER ERP 09/05/2024 2:32 PM MANAGER ERP Salvador Lombardi MD LAB - CHEMISTRY ORDERABLES Performing Organization Address [facility] Co de Phone Number [facility] [employer] ([facility]) [address] [place] [phone] [place] [address] * VITAMIN B1 (09/05/2024 2:22 PM MANAGER ERP) [facility] Vitamin B1 Whole Blood 141 70 - 180 nmol/L 09/10/2024 11:06 AM MANAGER ERP [employer] ([facility]) Comment: INTERPRETIVE INFORMATION: Vitamin B1, Whole Blood This assay measures the concentration of thiamine diphosphate (TDP), the primary active form of vitamin B1. Approximately 90 percent of vitamin B1 present in whole blood is TDP. Thiamine and thiamine monophosphate, which comprise the remaining 10 percent, are not measured. This test was developed and its performance characteristics determined by [facility]. It has not been cleared or approved by the US Food and Drug Administration. This test was performed in a CLIA certified laboratory and is intended for clinical purposes. Performed By: [facility] [address] [place] [address] Engineering Program Manager: Kiko Hu MD, PhD CLIA Number: [id number] Blood BLOOD SPECIMEN / Unknown Venipuncture / Unknown 09/05/2024 2:22 PM MANAGER ERP 09/05/2024 2:32 PM MANAGER ERP Salvador Lombardi MD LAB - CHEMISTRY ORDERABLES Performing Organization Address [facility]/ZIP Co de Phone Number [facility] ([facility]) [address] [place] [phone] [place] [address] * PROSTATE SPECIFIC ANTIGEN SCREEN (09/05/2024 2:22 PM MANAGER ERP) Only the most recent of6 resultswithin the time period is included. PSA 0.24 <4.00 ng/mL 09/05/2024 3:15 PM MANAGER ERP [facility] Blood BLOOD SPECIMEN / Unknown Venipuncture / Unknown 09/05/2024 2:22 PM MANAGER ERP 09/05/2024 2:32 PM MANAGER ERP Narrative [facility] - 09/05/2024 3:15 PM MANAGER ERP The methodology used for the determination of PSA is Gonzalez Matter.ionity Chemiluminescent Microparticle Immunoassay (CMIA). Values obtained with other methods can not be used interchangeably. Marcial Dalal CRUISE DIRECTOR-TELESCOPE MAINTENANCE LAB - CHEMISTRY ORDERABLES [facility] [address] * MAGNESIUM BLOOD (09/05/2024 2:22 PM MANAGER ERP) Only the most recent of2 resultswithin the time period is included. Magnesium 1.9 1.6 - 2.6 mg/dL 09/05/2024 2:54 PM MANAGER ERP [facility] Blood BLOOD SPECIMEN / Unknown Venipuncture / Unknown 09/05/2024 2:22 PM MANAGER ERP 09/05/2024 2:32 PM MANAGER ERP Salvador Lombardi MD LAB - CHEMISTRY ORDERABLES Performing Organization Address [facility] Co de Phone Number [facility] [address] * FOLATE (09/05/2024 2:22 PM MANAGER ERP) Only the most recent of2 resultswithin the time period is included. Folate 19.8 7.0 - 31.4 ng/mL 09/05/2024 3:29 PM MANAGER ERP [facility] Blood BLOOD SPECIMEN / Unknown Venipuncture / Unknown 09/05/2024 2:22 PM MANAGER ERP 09/05/2024 2:32 PM MANAGER ERP Salvador Lombardi MD LAB - CHEMISTRY ORDERABLES Performing Organization Address [facility] de Phone Number [facility] [address] * (ABNORMAL) VITAMIN B12 (09/05/2024 2:22 PM MANAGER ERP) Only the most recent of3 resultswithin the time period is included. Vitamin B12 939(H) 213 - 816 pg/mL 09/05/2024 3:22 PM MANAGER ERP [facility] Blood BLOOD SPECIMEN / Unknown Venipuncture / Unknown 09/05/2024 2:22 PM MANAGER ERP 09/05/2024 2:32 PM MANAGER ERP Salvador Lombardi MD LAB - CHEMISTRY ORDERABLES Performing Organization Address [facility] de Phone Number [facility] [address] * TSH (09/05/2024 2:22 PM MANAGER ERP) Only the most recent of4 resultswithin the time period is included. TSH 2.8268 0.35 - 4.94 uIU/mL 09/05/2024 3:29 PM MANAGER ERP [facility] Blood BLOOD SPECIMEN / Unknown Venipuncture / Unknown 09/05/2024 2:22 PM MANAGER ERP 09/05/2024 2:32 PM MANAGER ERP Salvador Lombardi MD LAB - CHEMISTRY ORDERABLES Performing Organization Address [facility] Co de Phone Number [facility] [address] * (ABNORMAL) IRON + TRANSFERRIN + TIBC PANEL (09/05/2024 2:22 PM MANAGER ERP) Only the most recent of2 resultswithin the time period is included. Iron 59(L) 65 - 175 ug/dL 09/05/2024 2:54 PM MANAGER ERP [facility] Transferrin 251 174 - 364 mg/dL 09/05/2024 2:54 PM MANAGER ERP [facility] TIBC Calculated 314 261 - 497 ug/dL 09/05/2024 2:54 PM MANAGER ERP [facility] Iron Saturation % 19 11 - 45 % 09/05/2024 2:54 PM MANAGER ERP [facility] Blood BLOOD SPECIMEN / Unknown Venipuncture / Unknown 09/05/2024 2:22 PM MANAGER ERP 09/05/2024 2:32 PM MANAGER ERP Salvador Lombardi MD LAB - CHEMISTRY ORDERABLES Performing Organization Address [facility] de Phone Number [facility] [address] * FERRITIN (09/05/2024 2:22 PM MANAGER ERP) Only the most recent of2 resultswithin the time period is included. Ferritin 175 22 - 275 ng/mL 09/05/2024 3:29 PM MANAGER ERP [facility] Blood BLOOD SPECIMEN / Unknown Venipuncture / Unknown 09/05/2024 2:22 PM MANAGER ERP 09/05/2024 2:32 PM MANAGER ERP Salvador Lombardi MD LAB - CHEMISTRY ORDERABLES Performing Organization Address City/[facility]/ZIP Co de Phone Number [facility] [address] [place], [place] [address] * XR KNEE 3 VW RIGHT [id number] (05/26/2024 11:56 AM CDT) Anatomical Region Laterality Modality Lower Extremity Computed Radiogr aphy 05/26/2024 12:0 1 PM CDT Impressions 05/26/2024 12:02 PM CDT IMPRESSION: Postsurgical change medial compartment. Developing degenerative change lateral and patellofemoral compartment. Small joint effusion. No fracture or bone destruction identified. > Interpreting Provider: Ezra Nunez MD on 05/26/2024 12:02 PM Narrative 05/26/2024 12:02 PM CDT PROCEDURE: XR KNEE RIGHT 3VW DATE/TIME OF EXAM: 05/26/2024 11:56 AM CLINICAL INFORMATION: None relevant/not provided if blank. Indication: M25.561: Pain in right knee Additional History: Previous surgery COMPARISON: July 18, 2019 FINDINGS: 3 views of the right knee are obtained. There has been placement of a medial compartment hemiarthroplasty. Femoral and medial tibial plateau components appear well seated. There is mild hypertrophic change lateral compartment and patellofemoral compartment. Small-volume joint effusion. No acute fracture or bone destruction is appreciated. Procedure Note Ezra Nunez MD - 05/26/2024 PROCEDURE: XR KNEE RIGHT 3VW DATE/TIME OF EXAM: 05/26/2024 11:56 AM CLINICAL INFORMATION: None relevant/not provided if blank. Indication: M25.561: Pain in right knee Additional History: Previous surgery COMPARISON: July 18, 2019 FINDINGS: 3 views of the right knee are obtained. There has been placement of a medial compartment hemiarthroplasty. Femoral and medial tibial plateau components appear well seated. There is mild hypertrophic change lateral compartment and patellofemoral compartment. Small-volume joint effusion. No acute fracture or bone destruction is appreciated. IMPRESSION: Postsurgical change medial compartment. Developing degenerative change lateral and patellofemoral compartment. Small joint effusion. No fracture or bone destruction identified. > Interpreting Provider: Ezra Nunez MD on 05/26/2024 12:02 PM Slade Burgess PA-C DIAGNOSTIC IMAG ING ORDERABLES * (ABNORMAL) MRSA + SA DNA PCR PANEL (03/05/2024 7:54 AM CDT) MRSA DNA by PCR Negative Negative 03/05/2024 9:33 AM CDT [facility] Staph aureus PCR Positive(A) Negative 03/05/2024 9:33 AM CDT [facility] Microbiology SPECIMEN FROM NASAL FOSSAE / Unknown Collection / Unknown 03/05/2024 7:54 AM CDT 03/05/2024 8:22 AM CDT Narrative [facility] - 03/05/2024 9:33 AM CDT Methicillin-resistant Staphylococcus aureus (MRSA) target DNA not detected; Staphylococcus aureus (SA) target DNA detected. A MRSA NEGATIVE; SA POSITIVE test result does not preclude MRSA or SA nasal colonization. Provider Unknown LAB - MICROBIOLOGY O RDERABLES Performing Organization Address City/[facility] Co de Phone Number [facility] [address] * PTT (03/05/2024 7:54 AM CDT) Pathologist [facility] PTT 25.9 23.0 - 38.4 sec 03/05/2024 8:35 AM CDT [facility] Blood BLOOD SPECIMEN / Unknown Venipuncture / Unknown 03/05/2024 7:54 AM CDT 03/05/2024 8:22 AM CDT Provider Unknown LAB - COAGULATION OR DERABLES Performing Organization Address City/[facility]/ZIP Co de Phone Number [facility] [address] * (ABNORMAL) PT-INR (03/05/2024 7:54 AM CDT) Pathologist [facility] PT 13.7 11.3 - 14.8 sec 03/05/2024 8:35 AM CDT [facility] INR 1.07(L) 2 - 3 03/05/2024 8:35 AM CDT [facility] Blood BLOOD SPECIMEN / Unknown Venipuncture / Unknown 03/05/2024 7:54 AM CDT 03/05/2024 8:22 AM CDT Narrative AM LABORATORY - 03/05/2024 8:35 AM CDT Recommended therapeutic INR ranges for Oral Anticoagulant Therapy: 2.0-3.0 For prevention of Thrombosis or Embolism and treatment of Venous Thrombosis. 2.5- 3.5 for prevention of Recurrent Embolism or treatment of patients with Mechanical Prosthetic Heart Valves. Provider Unknown LAB - COAGULATION OR DERABLES Performing Organization Address [facility]/ZIP Co de Phone Number [facility] [address] * (ABNORMAL) VITAMIN B12 FOLATE PANEL (10/18/2023 9:07 AM MANAGER ERP) [facility] Vitamin B12 1,052(H) 213 - 816 pg/mL 10/18/2023 1:15 PM MANAGER ERP [facility] Folate >20.0 7.0 - 31.4 ng/mL 10/18/2023 1:15 PM MANAGER ERP [facility] Blood BLOOD SPECIMEN / Unknown Venipuncture / Unknown 10/18/2023 9:07 AM MANAGER ERP 10/18/2023 9:07 AM MANAGER ERP Marcial Dalal CRUISE DIRECTOR-TELESCOPE MAINTENANCE LAB - CHEMISTRY ORDERABLES Performing Organization Address [facility] Co de Phone Number [facility] [address] * (ABNORMAL) RESPIRATORY PANEL WITH SARS-COV-2 BY PCR (STL) (06/08/2023 1:42 PM CDT) [facility] Adenovirus PCR Not detected Not detected 06/09/2023 1:46 AM CDT [facility] Coronavirus 229E PCR Not detected Not detected 06/09/2023 1:46 AM CDT [facility] Coronavirus HKU1 PCR Not detected Not detected 06/09/2023 1:46 AM CDT [facility] Coronavirus NL63 PCR Not detected Not detected 06/09/2023 1:46 AM CDT [facility] Coronavirus OC43 PCR Not detected Not detected 06/09/2023 1:46 AM CDT [facility] COVID-19 PCR Detected(A) Not detected 06/09/2023 1:46 AM CDT [facility] Human Metapneumovirus PCR Not detected Not detected 06/09/2023 1:46 AM CDT [facility] Human Rhinovirus/Enterov irus PCR Not detected Not detected 06/09/2023 1:46 AM CDT [facility] Influenza A PCR Not detected Not detected 06/09/2023 1:46 AM CDT [facility] Influenza B PCR Not detected Not detected 06/09/2023 1:46 AM CDT [facility] Parainfluenza Virus 1 PCR Not detected Not detected 06/09/2023 1:46 AM CDT [facility] Parainfluenza Virus 2 PCR Not detected Not detected 06/09/2023 1:46 AM CDT [facility] Parainfluenza Virus 3 PCR Not detected Not detected 06/09/2023 1:46 AM CDT [facility] Parainfluenza Virus 4 PCR Not detected Not detected 06/09/2023 1:46 AM CDT [facility] Respiratory Syncytial Virus PCR Not detected Not detected 06/09/2023 1:46 AM CDT [facility] Bordetella parapertussis PCR Not detected Not detected 06/09/2023 1:46 AM CDT [facility] Bordetella pertussis PCR Not detected Not detected 06/09/2023 1:46 AM CDT [facility] Chlamydia pneumoniae PCR Not detected Not detected 06/09/2023 1:46 AM CDT [facility] Mycoplasma pneumoniae PCR Not detected Not detected 06/09/2023 1:46 AM CDT [facility] Microbiology SPECIMEN FROM NASOPHARYNGEAL STRUCTURE / Unknown Collection / Unknown 06/08/2023 1:42 PM CDT 06/08/2023 1:42 PM CDT Narrative [facility] - 06/09/2023 1:46 AM CDT This nucleic amplification assay has received FDA authorization via the [employer]. Jeanmarie Simmons CRUISE DIRECTOR-TELESCOPE MAINTENANCE LAB - MICROBIOL OGY ORDERABLES [facility] [address] [place] [address], [facility] [phone] * COLONOSCOPY (09/14/2022) 09/14/2022 Narrative 09/14/2022 Ordered by an unspecified provider. Scanned Document SCANNING ONLY * SARS-COV-2 (COVID-19) INTERNAL (01/02/2022 2:47 PM MANAGER ERP) Only the most recent of3 resultswithin the time period is included. COVID-19 PCR Not detected Not detected 01/03/2022 6:21 AM MANAGER ERP [facility] Microbiology SPECIMEN FROM NASOPHARYNGEAL STRUCTURE / Unknown Collection / Unknown 01/02/2022 2:47 PM MANAGER ERP 01/02/2022 2:47 PM MANAGER ERP Narrative [facility] - 01/03/2022 6:21 AM MANAGER ERP This nucleic acid amplification assay performance was validated by [facility]. This test has been authorized by the Food and Drug administration (FDA)under an Emergency Use Authorization (EUA). This test has been validated in accordance with the FDA's guidance document Policy for Diagnostic Testing in Laboratories Certified to perform High Complexity Testing under CLIA prior to Emergency Use Authorization for Coronavirus Disease-2019 during the Public Health Emergency issued on December 27, 2019. FDA independent review of this validation is pending. This test is only authorized for the duration of time the declaration that circumstances exist justifying the authorization of emergency use of in vitro diagnostic tests for detection of SARS-CoV-2 virus and/or diagnosis of COVID-19 infection under section 564(b)(1) of the Act, 21 U.S.C 360bbb-3 (b)(1), unless the authorization is terminated or revoked sooner. Fact Sheets for this EUA assay are available upon request. Dwayne Lockett MD LAB - MICROBIOLOG Y ORDERABLES [facility] [address] [place] [address], [facility] [phone] * LAB RESULTS ORDER (12/23/2021) Only the most recent of7 resultswithin the time period is included. Historical Provider LAB - THERAPEUTIC DRUG MONITORING ORDERABLES * XR FOOT 2 VW BILAT [id number] X 2 (05/20/2021 10:51 AM CDT) Anatomical Region Laterality Modality Lower Extremity, Ankle / Foot Ra diographic Imaging 05/20/2021 11:1 4 AM CDT Impressions 05/20/2021 11:15 AM CDT COMPARISON: No comparison. RIGHT FOOT: No acute fracture, dislocation, destructive process. Moderate DJD first MTP joint. No osseous erosive changes. Rest of the joint spaces are unremarkable. Hammertoes. No other significant findings. LEFT FOOT: No acute fracture, dislocation, destructive process. No significant osteoarthrosis. No osseous erosive changes. Hammertoes. Soft tissue swelling. Small calcaneal spurs. *Reading Radiologist: Janes Oakley on 05/20/2021 at 11:15 AM Narrative 05/20/2021 11:15 AM CDT PROCEDURE: XR FOOT BILAT 2VW 05/20/2021 11:14 AM HISTORY: Chronic gout, unspecified, without tophus (tophi). FINDINGS AND Procedure Note Janes Oakley MD - 05/20/2021 PROCEDURE: XR FOOT BILAT 2VW 05/20/2021 11:14 AM HISTORY: Chronic gout, unspecified, without tophus (tophi). FINDINGS AND IMPRESSION COMPARISON: No comparison. RIGHT FOOT: No acute fracture, dislocation, destructive process. Moderate DJD first MTP joint. No osseous erosive changes. Rest of the joint spaces are unremarkable. Hammertoes. No other significant findings. LEFT FOOT: No acute fracture, dislocation, destructive process. No significant osteoarthrosis. No osseous erosive changes. Hammertoes. Soft tissue swelling. Small calcaneal spurs. *Reading Radiologist: Janes Oakley on 05/20/2021 at 11:15 AM Isaiah Leija MD DIAGNOSTIC IMAGING O RDERABLES * HLA TYPING B27 (05/20/2021 10:38 AM CDT) HLA-B27 Negative Negative 05/22/2021 7:39 PM CDT [facility] ([facility]) Comment: INTERPRETIVE INFORMATION: HLA-B27 HLA-B27 is a serologically defined allele of the human HLA-B locus. The presence of the HLA-B27 antigen is strongly associated with ankylosing spondylitis and related disorders. This test was developed and its performance characteristics determined by [facility]. It has not been cleared or approved by the US Food and Drug Administration. This test was performed in a CLIA certified laboratory and is intended for clinical purposes. Performed by [facility], [address] [place] [address] [email or web address], Dinora Rand MD, Lab. Director Blood BLOOD SPECIMEN / Unknown Venipuncture / Unknown 05/20/2021 10:38 AM CDT 05/20/2021 11:05 AM CDT Isaiah Leija MD LAB - CHEMISTRY ROSS [place]AUDHARY Performing Organization Address City/State/[facility] Co de Phone Number [facility] ([facility]) [address] [place], [place] [address] * CT RENAL [place] [id number] (02/11/2021 12:59 PM CDT) Only the most recent of3 resultswithin the time period is included. Anatomical Region Laterality Modality Abdomen Computed Tomogra phy 02/11/2021 1:29 PM CDT Impressions 02/11/2021 1:57 PM CDT Stone in the right kidney lower pole. No hydronephrotic changes. Hepatomegaly. Constipation. Narrative 02/11/2021 1:57 PM CDT Procedure: CT RENAL [place] Ordering provider: DWAYNE LOCKETT History: 60 years Male with . Unspecified abdominal pain. Comparison: None. Technique: CT abdomen and pelvis without IV contrast and without oral contrast. Radiation reduction technique utilized. The radiation dose 36.4 mGy. Findings: The study is limited especially for evaluation of the solid organs due to lack of IV contrast. VISUALIZED LOWER CHEST: Mild dependent atelectasis bilaterally. UNENHANCED UPPER ABDOMINAL ORGANS: Liver: Hepatomegaly. Gallbladder: Contracted with highly suggestive gallstones. Spleen: Normal. Stomach/duodenum: Normal. Pancreas: Normal. Adrenals: Normal. Kidneys: Right kidney lower pole 6 mm stone. No hydronephrotic changes. The left kidney is unremarkable. PELVIC ORGANS: The bladder is normal. No bladder stones. Prostate is unremarkable. BOWEL AND MESENTERY: Colon: Mild diverticulosis without diverticulitis sigmoid colon. A material is loaded in the colon. Normal appendix. Small Bowel: Normal. No obstruction. Peritoneum/mesentery: No free air or free fluid. No mesenteric lymphadenopathy. RETROPERITONEUM: Mild atheromatous disease of the abdominal aorta. No retroperitoneal lymphadenopathy. MUSCULOSKELETAL: Superficial soft tissues: The superficial soft tissues are normal. Bones: Age appropriate degenerative changes of the spine. Procedure Note Urbano Jean-Baptiste MD - 02/11/2021 Procedure: CT RENAL [place] Ordering provider: DWAYNE LOCKETT History: 60 years Male with . Unspecified abdominal pain. Comparison: None. Technique: CT abdomen and pelvis without IV contrast and without oral contrast. Radiation reduction technique utilized. The radiation dose 36.4 mGy. Findings: The study is limited especially for evaluation of the solid organs due to lack of IV contrast. VISUALIZED LOWER CHEST: Mild dependent atelectasis bilaterally. UNENHANCED UPPER ABDOMINAL ORGANS: Liver: Hepatomegaly. Gallbladder: Contracted with highly suggestive gallstones. Spleen: Normal. Stomach/duodenum: Normal. Pancreas: Normal. Adrenals: Normal. Kidneys: Right kidney lower pole 6 mm stone. No hydronephrotic changes. The left kidney is unremarkable. PELVIC ORGANS: The bladder is normal. No bladder stones. Prostate is unremarkable. BOWEL AND MESENTERY: Colon: Mild diverticulosis without diverticulitis sigmoid colon. A material is loaded in the colon. Normal appendix. Small Bowel: Normal. No obstruction. Peritoneum/mesentery: No free air or free fluid. No mesenteric lymphadenopathy. RETROPERITONEUM: Mild atheromatous disease of the abdominal aorta. No retroperitoneal lymphadenopathy. MUSCULOSKELETAL: Superficial soft tissues: The superficial soft tissues are normal. Bones: Age appropriate degenerative changes of the spine. IMPRESSION Stone in the right kidney lower pole. No hydronephrotic changes. Hepatomegaly. Constipation. Dwayne Lockett MD CT ORDERABLES * URINALYSIS REFLEX MICROSCOPIC REFLEX CULTURE (02/11/2021 12:25 PM CDT) Color UA Yellow 02/11/2021 12:42 PM CDT [facility] Clarity UA Clear Clear 02/11/2021 12:42 PM CDT [facility] Glucose UA Negative Negative 02/11/2021 12:42 PM CDT [facility] Bilirubin UA Negative Negative 02/11/2021 12:42 PM CDT [facility] Ketone UA Negative Negative 02/11/2021 12:42 PM CDT [facility] Specific [place] UA >=1.030 1.005 - 1.030 02/11/2021 12:42 PM CDT [facility] Blood UA Negative Negative 02/11/2021 12:42 PM CDT [facility] pH UA 5.0 5.0 - 8.0 pH 02/11/2021 12:42 PM CDT [facility] Protein UA Negative Negative 02/11/2021 12:42 PM CDT [facility] Urobilinogen UA Negative Negative mg/dL 02/11/2021 12:42 PM CDT [facility] Nitrite UA Negative Negative 02/11/2021 12:42 PM CDT [facility] Leukocyte UA Negative Negative 02/11/2021 12:42 PM CDT [facility] Urine Microscopy Urine microscopy not indicated 02/11/2021 12:42 PM CDT [facility] Reflex Status Culture not indicated 02/11/2021 12:42 PM CDT [facility] Urine URINE SPECIMEN OBTAINED BY CLEAN CATCH PROCEDURE / Unknown Collection / Unknown 02/11/2021 12:25 PM CDT 02/11/2021 12:28 PM CDT Dwayne Lockett MD LAB - URINALYSIS ORDERABLES Performing Organization Address [facility]/State/[facility] Co de Phone Number [facility] [address] * CHELI BLOOD SCREEN W/REFLEX TITER (10/08/2019 8:06 AM MANAGER ERP) Only the most recent of3 resultswithin the time period is included. CHELI IgG None Detected None Detected 10/09/2019 11:45 PM MANAGER ERP [facility] ([facility]) Comment: If suspicion of connective tissue disease is strong and CHELI EIA is negative, consider testing for CHELI by IFA ([id number]). INTERPRETIVE INFORMATION: Anti-Nuclear Antibodies (CHELI), IgG by NABIL Antinuclear Antibodies (CHELI), IgG by NABIL: CHELI specimens are screened using enzyme-linked immunosorbent assay (NABIL) methodology. All NABIL results reported as Detected are further tested by indirect fluorescent assay (IFA) using HEp-2 substrate with an IgG-specific conjugate. The CHELI NABIL screen is designed to detect antibodies against dsDNA, histones, SS-A (Ro), SS-B (La), Simmons, Simmons/DATABASE TECHNICIAN, Scl-70, Maddison-1, centromeric proteins, other antigens extracted from the HEp-2 cell nucleus. CHELI NABIL assays have been reported to have lower sensitivities than CHELI IFA for systemic autoimmune rheumatic diseases (SARD). Negative results do not necessarily rule out SARD. Performed by [facility], [address] [place] [id number] [email or web address], Lizandro Cevallos MD, Lab. Director Blood BLOOD SPECIMEN / Unknown Venipuncture / Unknown 10/08/2019 8:06 AM MANAGER ERP 10/08/2019 8:06 AM MANAGER ERP Salvador Lombardi MD LAB - CHEMISTRY ORDERABLES [employer] [facility]) [address] * NEUTROPHIL CYTOPLASMIC ANTIBODY IGG (10/08/2019 8:06 AM MANAGER ERP) ANCA IgG <1:20 <1:20 10/09/2019 5:38 PM MANAGER ERP [employer] ([facility]) Comment: The ANCA IFA is <1:20; therefore, no further testing will be performed. INTERPRETIVE INFORMATION: Anti-Neutrophil Cyto Ab, IgG Neutrophil Cytoplasmic Antibodies (C-ANCA = granular cytoplasmic staining, P-ANCA = perinuclear staining) are found in the serum of over 90 percent of patients with certain necrotizing systemic vasculitides, and usually in less than 5 percent of patients with collagen vascular disease or arthritis. Performed by [facility], [address] [place] [address] [email or web address], Lizandro Cevallos MD, Lab. Director Blood BLOOD SPECIMEN / Unknown Venipuncture / Unknown 10/08/2019 8:06 AM MANAGER ERP 10/08/2019 8:06 AM MANAGER ERP Salvador Lombardi MD LAB - SEROLOGY O RDERABLES [employer] ([facility]) [address] [place] [address], [facility] * SSA + SSB ANTIBODY PANEL [SJOGRENS ANTIBODY PANEL] (10/08/2019 8:06 AM MANAGER ERP) SS-A 52 Antibody 1 0 - 40 AU/mL 10/10/2019 4:[address] [facility] [employer] ([facility]) Comment: INTERPRETIVE INFORMATION: SSA-52 (Ro52) (YESSI) Antibody, IgG 29 AU/mL or Less ............. Negative 30 - 40 AU/mL ................ Equivocal 41 AU/mL or Greater .......... Positive SSA-52 (Ro52) and/or SSA-60 (Ro60) antibodies are associated with a diagnosis of Sjogren syndrome, systemic lupus erythematosus (SLE), and systemic sclerosis. SSA-52 antibody overlaps significantly with the major SSc-related antibodies. SSA-52 (Ro52) antibody occurs frequently in patients with inflammatory myopathies, often in the presence of interstitial lung disease. SS-A 60 Antibody 1 0 - 40 AU/mL 10/10/2019 4:57 AM [facility] ([facility]) Comment: REFERENCE INTERVAL: SSA-60 (Ro60) (YESSI) Antibody, IgG 29 AU/mL or Less ............. Negative 30 - 40 AU/mL ................ Equivocal 41 AU/mL or Greater .......... Positive SS-B Antibody 0 0 - 40 AU/mL 10/10/2019 4:57 AM MANAGER ERP [employer] ([facility]) Comment: INTERPRETIVE INFORMATION: SSB (La) (YESSI) Ab, IgG 29 AU/mL or Less ............. Negative 30 - 40 AU/mL ................ Equivocal 41 AU/mL or Greater .......... Positive SSB (La) antibody is seen in 50-60% of Sjogren syndrome cases and is specific if it is the only YESSI antibody present. 15-25% of patients with systemic lupus erythematosus (SLE) and 5-10% of patients with progressive systemic sclerosis (PSS) also have this antibody. Performed by [facility], [address] [place] [address] [email or web address], Lizandro Cevallos MD, Lab. Director Blood BLOOD SPECIMEN / Unknown Venipuncture / Unknown 10/08/2019 8:06 AM MANAGER ERP 10/08/2019 8:06 AM MANAGER ERP Salvador Lombardi MD LAB - CHEMISTRY ORDERABLES Performing Organization Address [facility]/ZIP Co de Phone Number [employer] ([facility]) [address] [place] [id number] * MYOGLOBIN BLOOD (10/08/2019 8:06 AM MANAGER ERP) Pathologist [facility] Myoglobin 82.9 1 - 140 ng/mL 10/08/2019 1:37 PM MANAGER ERP [facility] Blood BLOOD SPECIMEN / Unknown Venipuncture / Unknown 10/08/2019 8:06 AM MANAGER ERP 10/08/2019 8:06 AM MANAGER ERP Narrative [facility] - 10/08/2019 1:37 PM MANAGER ERP A doubling of the myoglobin value, or an increase of 40 ng/mLwithin two hours between specimens is suggestive of myocardial infarction (even if both values are within the normal range). Salvador Lombardi MD LAB - CHEMISTRY ORDERABLES [facility] [address] * DNA ANTIBODY DOUBLE STRAND (10/08/2019 8:06 AM MANAGER ERP) dsDNA Antibody None Detected None Detected 10/09/2019 3:34 PM MANAGER ERP [facility] [employer] ([facility]) Comment: INTERPRETIVE INFORMATION: Double-Stranded DNA (dsDNA) Antibody, IgG by NABIL Positivity for anti-double stranded DNA (anti-dsDNA) IgG antibody is a diagnostic criterion of systemic lupus erythematosus (SLE). Specimens are initially screened by enzyme-linked immunosorbent assay (NABIL). All NABIL results reported as detected (positive) are confirmed by a highly specific IFA titer (Crithidia luciliae indirect fluorescent test [DHARA]). Some patients with early or inactive SLE may be positive for anti-dsDNA IgG by NABIL but negative by DHARA. If the patient is negative by DHARA but positive by NABIL and clinical suspicion remains, consider antinuclear antibody (CHELI) testing by IFA. Additional information and recommendations for testing may be found at [email or web address]. Performed by [facility], [address] [place] [address] [id number] [email or web address], Lizandro Cevallos MD, Lab. Director Blood BLOOD SPECIMEN / Unknown Venipuncture / Unknown 10/08/2019 8:06 AM MANAGER ERP 10/08/2019 8:06 AM MANAGER ERP Salvador Lombardi MD LAB - HEMATOLOGY ORDERABLES [employer] [facility]) [address] [place] [address], [facility] * ALDOLASE (10/08/2019 8:06 AM MANAGER ERP) Aldolase 6.4 1.5 - 8.1 U/L 10/09/2019 3:40 PM MANAGER ERP [employer] ([facility]) Comment: REFERENCE INTERVAL: Aldolase Access complete set of age- and/or gender-specific reference intervals for this test in the [facility] Test Directory ([email or web address]). Performed by [facility], [address] [place] [address] [email or web address], Lizandro Cevallos MD, Lab. Director Blood BLOOD SPECIMEN / Unknown Venipuncture / Unknown 10/08/2019 8:06 AM MANAGER ERP 10/08/2019 8:06 AM MANAGER ERP Salvador Lombardi MD LAB - CHEMISTRY ORDERABLES Performing Organization Address [facility] de Phone Number [facility] [employer] ([facility]) [address] * EDUARDO AUTO ANTIBODY (10/08/2019 8:06 AM MANAGER ERP) Pathologist [facility] Glutamic Acid Decarboxylase Antibody <5.0 0.0 - 5.0 IU/mL 10/10/2019 3:37 PM MANAGER ERP [facility] ([facility]) Comment: INTERPRETIVE INFORMATION: Glutamic Acid Decarboxylase Antibody A value greater than 5.0 IU/mL is considered positive for Glutamic Acid Decarboxylase Antibody (EDUARDO Ab). This assay is intended for the semi-quantitative determination of the EDUARDO Ab in human serum. Results should be interpreted within the context of clinical symptoms. Performed by [facility], [address] [place] [address] [email or web address], Lizandor Cevallos MD, Lab. Director Blood BLOOD SPECIMEN / Unknown Venipuncture / Unknown 10/08/2019 8:06 AM MANAGER ERP 10/08/2019 8:06 AM MANAGER ERP Salvador Lombardi MD LAB - SEROLOGY O RDERABLES Performing Organization Address [facility] de Phone Number [facility]) [address] * CBC W MANUAL DIFFERENTIAL (10/08/2019 8:06 AM MANAGER ERP) Only the most recent of2 resultswithin the time period is included. Pathologist [facility] WBC 6.1 4.0 - 10.0 x10E9/L 10/08/2019 12:51 PM MANAGER ERP [facility] RBC 4.86 4.40 - 6.10 x10E12/L 10/08/2019 12:51 PM MANAGER ERP [facility] Hemoglobin 14.6 13.7 - 17.5 gm/dL 10/08/2019 12:51 PM MANAGER ERP [facility] Hematocrit 45.2 40.1 - 51.0 % 10/08/2019 12:51 PM MANAGER ERP [facility] MCV 93.0 78.0 - 100.0 fl 10/08/2019 12:51 PM MANAGER ERP [facility] MCH 30.0 25.6 - 34.0 pg 10/08/2019 12:51 PM MANAGER ERP [facility] MCHC 32.3 32.3 - 36.5 gm/dL 10/08/2019 12:51 PM [facility] RDW 13.3 11.6 - 14.4 % 10/08/2019 12:[address] [facility] MPV 10.7 9.4 - 12.4 fl 10/08/2019 12:51 PM [facility] Platelet Count 244 163 - 369 x10E9/L 10/08/2019 12:51 PM [facility] nRBC Auto 0 <=0 /100 WBC 10/08/2019 12:51 PM [facility] Blood BLOOD SPECIMEN / Unknown Venipuncture / Unknown 10/08/2019 8:06 AM MANAGER ERP 10/08/2019 8:06 AM MANAGER ERP Salvador Lombardi MD LAB - HEMATOLOGY ORDERABLES Performing Organization Address City/State/[facility] Co de Phone Number [facility] [address] [place] [address] * (ABNORMAL) DIFFERENTIAL MANUAL (10/08/2019 8:06 AM MANAGER ERP) Only the most recent of2 resultswithin the time period is included. WBC Auto 6.1 4.0 - 10.0 x10E9/L 10/08/2019 1:28 PM MANAGER ERP [facility] Neutrophils % Manual 56 40 - 75 % 10/08/2019 1:28 PM MANAGER ERP [facility] Lymphocytes % Manual 29 19 - 53 % 10/08/2019 1:28 PM MANAGER ERP [facility] Monocytes % Manual 7 5 - 13 % 10/08/2019 1:28 PM MANAGER ERP [facility] Eosinophils % Manual 8(H) 1 - 7 % 10/08/2019 1:28 PM MANAGER ERP [facility] Neutrophils Absolute Manual 3.4 1.6 - 6.1 x10E3/uL 10/08/2019 1:28 PM MANAGER ERP [facility] Lymphocytes Absolute Manual 1.8 x10E3/uL 10/08/2019 1:28 PM MANAGER ERP [facility] Monocytes Absolute Manual 0.4 x10E3/uL 10/08/2019 1:28 PM MANAGER ERP [facility] Eosinophils Absolute Manual 0.5 x10E3/uL 10/08/2019 1:28 PM MANAGER ERP [facility] Cells Counted 100 # cells 10/08/2019 1:28 PM [facility] Platelet Estimation Adequate platelets Normal, Adequate platelets 10/08/2019 1:28 PM [facility] RBC Morphology Normal 10/08/2019 1:28 PM [facility] WBC Morph Normal 10/08/2019 1:28 PM [facility] Large Platelets 1+(A) None 10/08/2019 1:28 PM [facility] Blood BLOOD SPECIMEN / Unknown Venipuncture / Unknown 10/08/2019 8:06 AM MANAGER ERP 10/08/2019 8:06 AM MANAGER ERP Salvador Lombardi MD LAB - HEMATOLOGY ORDERABLES Performing Organization Address City/[facility]/ZIP Co de Phone Number [facility] [address] * (ABNORMAL) CK BLOOD (10/08/2019 8:06 AM MANAGER ERP) CK 223(H) 30 - 200 U/L 10/08/2019 1:37 PM [facility] Blood BLOOD SPECIMEN / Unknown Venipuncture / Unknown 10/08/2019 8:06 AM MANAGER ERP 10/08/2019 8:06 AM MANAGER ERP Salvador Lombardi MD LAB - CHEMISTRY ORDERABLES Performing Organization Address [facility] Co de Phone Number [facility] [address] * XR KNEE 4+ VW BILAT [id number] X 2 (07/18/2019 10:57 AM CDT) Anatomical Region Laterality Modality Lower Extremity Radiographic Samantha ging 07/18/2019 11:0 0 AM CDT Impressions 07/18/2019 11:03 AM CDT COMPARISON: No comparison. No acute fracture, dislocation, destructive process involving either knee. Moderate to severe joint space narrowing of medial compartment of right knee. Mild joint space narrowing of patellofemoral compartment right knee. Tricompartment osteophytosis. Soft tissue swelling. Joint effusion. Moderate tricompartment osteoarthrosis of right knee. Mild to moderate joint space narrowing of medial compartment of left knee. Minimal joint space narrowing of patellofemoral compartment Mild soft tissue swelling Joint effusion. Mild to moderate osteoarthrosis. No osseous erosive changes on either side. Narrative 07/18/2019 11:03 AM CDT PROCEDURE: XR KNEE BILAT 4VW OR MORE 07/18/2019 11:00 AM HISTORY: Pain in right knee. FINDINGS AND Procedure Note Janes Oakley MD - 07/18/2019 PROCEDURE: XR KNEE BILAT 4VW OR MORE 07/18/2019 11:00 AM HISTORY: Pain in right knee. FINDINGS AND IMPRESSION COMPARISON: No comparison. No acute fracture, dislocation, destructive process involving either knee. Moderate to severe joint space narrowing of medial compartment of right knee. Mild joint space narrowing of patellofemoral compartment right knee. Tricompartment osteophytosis. Soft tissue swelling. Joint effusion. Moderate tricompartment osteoarthrosis of right knee. Mild to moderate joint space narrowing of medial compartment of left knee. Minimal joint space narrowing of patellofemoral compartment Mild soft tissue swelling Joint effusion. Mild to moderate osteoarthrosis. No osseous erosive changes on either side. Dwayne Lockett MD DIAGNOSTIC IMAGIN G ORDERABLES * MRI CERVICAL SPINE W WO CONTRAST [id number] (01/24/2019 12:44 PM CDT) Anatomical Region Laterality Modality Spine Magnetic Resonan ce 01/24/2019 12:5 3 PM CDT Impressions 01/24/2019 12:59 PM CDT Multilevel degenerative changes as detailed above. No myelopathic cord changes or abnormal enhancing lesions. Narrative 01/24/2019 12:59 PM CDT PROCEDURE: MRI CERVICAL SPINE WWO CONT 01/24/2019 12:54 PM HISTORY: Disease of spinal cord, unspecified. IMAGING STUDIES: MRI CERVICAL SPINE WWO CONT EXAM DATE/TIME: 01/24/2019 12:44 PM COMPARISON STUDIES: No previous available. CLINICAL HISTORY: Disease of spinal cord, unspecified. . TECHNIQUE: Multiplanar sagittal and axial T1 and T2-weighted sequences through the cervical spine. CONTRAST: 20 mL MultiHance FINDINGS: Degenerative changes are present throughout the intervertebral discs as well as uncovertebral joints and pedicles. The spinal cord within the cervical spine appears normal in signal and demonstrates no discrete lesions, myelopathic changes or abnormal enhancing foci on postcontrast series.. Visualized portions of the posterior fossa appear Grossly normal. Level specific findings as follows: C2-3: Minimal degenerative change C3-4: Moderately severe posterior spondylosis with flattening of the ventral surface of the spinal cord. No discrete disc protrusion or spinal canal stenosis. Mild bilateral neural foraminal narrowing, right greater than left. C4-5: Similar changes as at C3-4 with mild bilateral neural from narrowing. C5-6: More severe broad-based disc bulging and spondylosis with moderately severe bilateral neural foraminal narrowing at this level, right greater than left. No discrete disc protrusion or spinal canal stenosis. C6-7: Mild to moderate degenerative spondylosis with mild bilateral neural from narrowing. No disc protrusion or spinal canal stenosis. C7-T1: Minimal degenerative change. Procedure Note Venkatesh Joyce MD - 01/24/2019 PROCEDURE: MRI CERVICAL SPINE WWO CONT 01/24/2019 12:54 PM HISTORY: Disease of spinal cord, unspecified. IMAGING STUDIES: MRI CERVICAL SPINE WWO CONT EXAM DATE/TIME: 01/24/2019 12:44 PM COMPARISON STUDIES: No previous available. CLINICAL HISTORY: Disease of spinal cord, unspecified. . TECHNIQUE: Multiplanar sagittal and axial T1 and T2-weighted sequences through the cervical spine. CONTRAST: 20 mL MultiHance FINDINGS: Degenerative changes are present throughout the intervertebral discs as well as uncovertebral joints and pedicles. The spinal cord within the cervical spine appears normal in signal and demonstrates no discrete lesions, myelopathic changes or abnormal enhancing foci on postcontrast series.. Visualized portions of the posterior fossa appear Grossly normal. Level specific findings as follows: C2-3: Minimal degenerative change C3-4: Moderately severe posterior spondylosis with flattening of the ventral surface of the spinal cord. No discrete disc protrusion or spinal canal stenosis. Mild bilateral neural foraminal narrowing, right greater than left. C4-5: Similar changes as at C3-4 with mild bilateral neural from narrowing. C5-6: More severe broad-based disc bulging and spondylosis with moderately severe bilateral neural foraminal narrowing at this level, right greater than left. No discrete disc protrusion or spinal canal stenosis. C6-7: Mild to moderate degenerative spondylosis with mild bilateral neural from narrowing. No disc protrusion or spinal canal stenosis. C7-T1: Minimal degenerative change. IMPRESSION Multilevel degenerative changes as detailed above. No myelopathic cord changes or abnormal enhancing lesions. Salvador Lombardi MD MR ORDERABLES * MRI BRAIN W WO CONTRAST [id number] (01/09/2019 2:35 PM CDT) Anatomical Region Laterality Modality Head Magnetic Resonan ce 01/09/2019 3:49 PM CDT Impressions 01/09/2019 3:54 PM CDT Nonspecific punctate white matter change. The brain is felt to be normal for age. No abnormal enhancement. Narrative 01/09/2019 3:54 PM CDT PROCEDURE: MRI BRAIN WWO CONTRAST 01/09/2019 2:37 PM HISTORY: Ataxia, unspecified. FINDINGS AND IMPRESSION: COMPARISON: No comparison. 20 cc MultiHance FINDINGS: Diffusion-weighted sequences show no evidence of ischemia or infarction. The midline structures are unremarkable as seen. Normal flow voids are identified in the central vessels . Intracranial structures have normal signal characteristics without evidence of mass effect or hemorrhage Few punctate nonspecific white matter changes are present.. The ventricles are normal in size. No bony pathology is seen . The sinuses are clear. Postgadolinium sequences demonstrate no abnormal enhancement. Procedure Note Iglesia Dick MD - 01/09/2019 PROCEDURE: MRI BRAIN WWO CONTRAST 01/09/2019 2:37 PM HISTORY: Ataxia, unspecified. FINDINGS AND IMPRESSION: COMPARISON: No comparison. 20 cc MultiHance FINDINGS: Diffusion-weighted sequences show no evidence of ischemia or infarction. The midline structures are unremarkable as seen. Normal flow voids are identified in the central vessels . Intracranial structures have normal signal characteristics without evidence of mass effect or hemorrhage Few punctate nonspecific white matter changes are present.. The ventricles are normal in size. No bony pathology is seen . The sinuses are clear. Postgadolinium sequences demonstrate no abnormal enhancement. IMPRESSION Nonspecific punctate white matter change. The brain is felt to be normal for age. No abnormal enhancement. Salvador Lombardi MD MR ORDERABLES * MRI SHOULDER WO CONTRAST LEFT [id number] (01/09/2019 1:11 PM CDT) Anatomical Region Laterality Modality Upper Extremity Magnetic Resonan ce 01/09/2019 2:36 PM CDT Impressions 01/09/2019 2:40 PM CDT Moderate hypertrophic changes the acromioclavicular joint with some fluid in the joint space. Small amount of subchondral cystic change in the bony labrum posteriorly Narrative 01/09/2019 2:40 PM CDT PROCEDURE: MRI SHOULDER LEFT WO CONTRAST 01/09/2019 1:12 PM HISTORY: Pain in left shoulder. FINDINGS AND IMPRESSION: COMPARISON: Left shoulder weakness and pain No plain films for comparison Hypertrophic arthrosis of the acromioclavicular joint with fluid in the joint space. The rotator cuff has normal signal characteristics no evidence of tear. No muscular atrophy is seen. Long head short head biceps tendon normal. Teres minor and subscapularis intact. No muscular atrophy. Small subchondral cystic change adjacent to the posterior labrum image 16 series 9 The glenoid labrum appears intact. No soft tissue pathology or adenopathy seen. Procedure Note Iglesia Dick MD - 01/09/2019 PROCEDURE: MRI SHOULDER LEFT WO CONTRAST 01/09/2019 1:12 PM HISTORY: Pain in left shoulder. FINDINGS AND IMPRESSION: COMPARISON: Left shoulder weakness and pain No plain films for comparison Hypertrophic arthrosis of the acromioclavicular joint with fluid in the joint space. The rotator cuff has normal signal characteristics no evidence of tear. No muscular atrophy is seen. Long head short head biceps tendon normal. Teres minor and subscapularis intact. No muscular atrophy. Small subchondral cystic change adjacent to the posterior labrum image 16 series 9 The glenoid labrum appears intact. No soft tissue pathology or adenopathy seen. IMPRESSION Moderate hypertrophic changes the acromioclavicular joint with some fluid in the joint space. Small amount of subchondral cystic change in the bony labrum posteriorly Cb Watkins MD MR ORDERABLES * LYME DISEASE AB IGG WB (01/03/2019 1:33 PM MANAGER ERP) Borrelia burgdorferi Antibody IgG WB Negative Negative 01/06/2019 2:41 PM CDT [employer] (AM) Comment: Band(s) present: 93, 58, 41 kDa (Insufficient number of bands for positive result) INTERPRETIVE INFORMATION: B. burgdorferi IgG Immunoblot For this assay, a positive result is reported when any 5 or more of the following 10 bands are present: 18, 23, 28, 30, 39, 41, 45, 58, 66, or 93 kDa. All other banding patterns are reported as negative. Performed by [facility], [address] [place] [id number] [email or web address], Lizandro Cevallos MD, Lab. Director Blood BLOOD SPECIMEN / Unknown Venipuncture / Unknown 01/03/2019 1:33 PM MANAGER ERP 01/03/2019 1:42 PM MANAGER ERP Salvador Lombardi MD LAB - SEROLOGY O RDERABLES Performing Organization Address [facility] Co de Phone Number [employer] ([facility]) [address] [place] [id number] [place] [address] * RHEUMATOID FACTOR BLOOD QUANTITATIVE (01/03/2019 1:33 PM MANAGER ERP) [facility] Rheumatoid Factor Quantitative Negative <10IU/mL Negative <10IU/mL, Positive 10 IU/mL 01/03/2019 2:25 PM MANAGER ERP [facility] Blood BLOOD SPECIMEN / Unknown Venipuncture / Unknown 01/03/2019 1:33 PM MANAGER ERP 01/03/2019 1:42 PM MANAGER ERP Salvador Lombardi MD LAB - CHEMISTRY ORDERABLES Performing Organization Address City/[facility]/ZIP Co de Phone Number [facility] [facility] [address] * T4 FREE (01/03/2019 1:33 PM MANAGER ERP) [facility] T4 Free 0.89 0.71 - 1.48 ng/dL 01/03/2019 2:39 PM MANAGER ERP [facility] Blood BLOOD SPECIMEN / Unknown Venipuncture / Unknown 01/03/2019 1:33 PM MANAGER ERP 01/03/2019 1:42 PM MANAGER ERP Salvador Lombardi MD LAB - CHEMISTRY ORDERABLES [facility] [address] [place] [address], [facility] * TESTOSTERONE TOTAL (03/08/2018 8:19 AM CDT) Testosterone 411 264 - 916 ng/dL [facility] INSURANCE BILL Comment: Adult male reference interval is based on a population of healthy nonobese males (BMI <30) between 19 and 39 years old. Pastor et.al. JCEM 2017,102;8519-9012. PMID: [id number]. FASTING 03/08/2018 8:19 AM CDT 03/08/2018 Narrative Resulting Agency Comment [facility] [address] [facility] [id number] Dwayne Lockett MD LAB - CHEMISTRY O RDERABLES [facility] INSURANCE BILL [address] [place] [address] * (ABNORMAL) TESTOSTERONE FREE+TOT MALE PANEL (02/27/2018 7:57 AM CDT) Testosterone Adult Male 221(L) 300 - 890 ng/dL 02/28/2018 3:50 PM CDT [employer] ([facility]) Comment: REFERENCE INTERVAL: Testosterone, Adult Male Access complete set of age- and/or gender-specific reference intervals for this test in the [facility] ([facility]al[facility]). Sex Hormone Binding Globulin 39 11 - 80 nmol/L 02/28/2018 3:50 PM CDT [employer] ([facility]) Comment: REFERENCE INTERVAL: Sex Hormone Binding Globulin Access complete set of age- and/or gender-specific reference intervals for this test in the [facility] ([facility]). Testosterone Free 35(L) 47 - 244 pg/mL 02/28/2018 3:50 PM CDT [employer] ([facility]) Comment: INTERPRETIVE INFORMATION: Testosterone, Free Amarjit Stage IV 35 - 169 pg/mL Amarjit Stage V 41 - 239 pg/mL The concentration of Free Testosterone is derived from a mathematical expression based on the constant for the binding of testosterone to Sex Hormone Binding Globulin (SHBG). Access complete set of age- and/or gender-specific reference intervals for this test in the [facility] ([facility]). Testosterone % Free 1.6 1.6 - 2.9 % 02/28/2018 3:50 PM CDT [employer] ([facility]) Comment: Performed by [employer], [address] [place] [address] [email or web address], Lizandro Cevallos MD, Lab. Director Blood BLOOD SPECIMEN / Unknown Venipuncture / Unknown 02/27/2018 7:57 AM CDT 02/27/2018 7:57 AM CDT Dwayne Lockett MD LAB - CHEMISTRY O RDERABLES [employer] ([facility]) [address] [place] [address], [facility] * XR CHEST 2VW (02/13/2018 4:16 PM CDT) Only the most recent of2 resultswithin the time period is included. Anatomical Region Laterality Modality Chest Radiographic Samantha ging 02/13/2018 4:20 PM CDT Impressions 02/13/2018 4:23 PM CDT No focal acute process; mild parenchymal changes in the lung bases likely represent mild fibrosis. Probable external foreign body versus nipple shadow overlying the lower right chest. Narrative 02/13/2018 4:23 PM CDT EXAMINATION: XR CHEST 2VW EXAM DATE/TIME: 02/13/2018 4:16 PM CLINICAL HISTORY: Wheezing COMPARISON: 12/27/2014 Report: Minimal bibasilar parenchymal markings likely associated with mild fibrotic changes with no focal consolidation, effusion, pneumothorax or definite lymphadenopathy. There appears to be a 1.2 cm rounded radiopaque foreign body overlying the lower right chest versus nipple shadow. Bones and upper abdomen appear within normal limits. Heart size within normal limits. Procedure Note Venkatesh Joyce MD - 02/13/2018 EXAMINATION: XR CHEST 2VW EXAM DATE/TIME: 02/13/2018 4:16 PM CLINICAL HISTORY: Wheezing COMPARISON: 12/27/2014 Report: Minimal bibasilar parenchymal markings likely associated with mild fibrotic changes with no focal consolidation, effusion, pneumothorax or definite lymphadenopathy. There appears to be a 1.2 cm rounded radiopaque foreign body overlying the lower right chest versus nipple shadow. Bones and upper abdomen appear within normal limits. Heart size within normal limits. IMPRESSION No focal acute process; mild parenchymal changes in the lung bases likely represent mild fibrosis. Probable external foreign body versus nipple shadow overlying the lower right chest. Dwayne Lockett MD DIAGNOSTIC IMAGIN G ORDERABLES * XR LUMBAR SPINE COMPL 6VWS (05/15/2016 10:07 AM CDT) Anatomical Region Laterality Modality Spine Radiographic Samantha ging 05/15/2016 10:1 4 AM CDT Narrative 05/15/2016 10:49 AM CDT LUMBAR SPINE (05/15/2016) INDICATION: Lifting injury. Low back pain. FINDINGS: Mild degenerative narrowing of the L2-L3, L3-L4, L4-L5 and L5-S1 disc spaces. Associated mild degenerative bony spurring. No instability on flexion and extension views. Lumbar spine films otherwise negative. Degenerative disc disease within the lower thoracic spine. SUMMARY: Multilevel degenerative disc disease. Procedure Note Regis Corral MD - 05/15/2016 LUMBAR SPINE (05/15/2016) INDICATION: Lifting injury. Low back pain. FINDINGS: Mild degenerative narrowing of the L2-L3, L3-L4, L4-L5 and L5-S1 disc spaces. Associated mild degenerative bony spurring. No instability on flexion and extension views. Lumbar spine films otherwise negative. Degenerative disc disease within the lower thoracic spine. SUMMARY: Multilevel degenerative disc disease. Sincere Michael DO DIAGNOSTIC IMAGING O RDERABLES * MRI LUMBAR SPINE WO CONTRAST (05/09/2016 8:35 AM CDT) Anatomical Region Laterality Modality Spine Magnetic Resonan ce 05/09/2016 10:1 9 AM CDT Impressions 05/09/2016 4:10 PM CDT 1. Small left paracentral annular tear and disc herniation L3-L4, see image 26 series 9, superimposed on a broad-based disc protrusion with mild bilateral foraminal encroachment and left lateral protrusion of disc material. There is contact of the exiting L4 nerve root sleeve below that level on image 26 series 9 . 2. Mirror-image disc herniation L5-S1 left paracentral with contact of the exiting S1 nerve root sleeve, see image 12 series 7. Two levels of small disc herniation and nerve root sleeve contact are present at L3-L4 and L5-S1, see the axial images referenced above. Narrative 05/09/2016 4:10 PM CDT MRI LUMBAR SPINE WITHOUT CONTRAST 05/09/2016 CLINICAL HISTORY: Numbness, tingling, burning, difficulty walking. No known injury, no back pain. FINDINGS: Desiccation identified at L4-L5 and L5-S1 discs. Conus has normal signal and morphology. No fracture is seen. Early eburnation of the L4-L5 and L5 facets are present. No compression fracture is seen. Retroperitoneal soft tissue structures normal as seen. L5-S1: Left paracentral disc herniation with contact of the exiting left S1 nerve root sleeve and deflection posteriorly. See image 12 series 7. It is superimposed on a broad-based protrusion of disc material L5-S1 and mild bilateral foraminal encroachment. L4-L5: Concentric bulge of disc material with mild central canal and mild bilateral foraminal encroachment. L3-L4: Small annular tear left lateral disc margin with a disc herniation laterally L3-L4 and some subtle contact of the exiting nerve root sleeve at that level. L2-L3: There is far lateral disc protrusion with no contact of the exiting nerve sleeve at that level. Procedure Note Iglesia Dick MD - 05/09/2016 MRI LUMBAR SPINE WITHOUT CONTRAST 05/09/2016 CLINICAL HISTORY: Numbness, tingling, burning, difficulty walking. No known injury, no back pain. FINDINGS: Desiccation identified at L4-L5 and L5-S1 discs. Conus has normal signal and morphology. No fracture is seen. Early eburnation of the L4-L5 and L5 facets are present. No compression fracture is seen. Retroperitoneal soft tissue structures normal as seen. L5-S1: Left paracentral disc herniation with contact of the exiting left S1 nerve root sleeve and deflection posteriorly. See image 12 series 7. It is superimposed on a broad-based protrusion of disc material L5-S1 and mild bilateral foraminal encroachment. L4-L5: Concentric bulge of disc material with mild central canal and mild bilateral foraminal encroachment. L3-L4: Small annular tear left lateral disc margin with a disc herniation laterally L3-L4 and some subtle contact of the exiting nerve root sleeve at that level. L2-L3: There is far lateral disc protrusion with no contact of the exiting nerve sleeve at that level. IMPRESSION 1. Small left paracentral annular tear and disc herniation L3-L4, see image 26 series 9, superimposed on a broad-based disc protrusion with mild bilateral foraminal encroachment and left lateral protrusion of disc material. There is contact of the exiting L4 nerve root sleeve below that level on image 26 series 9 . 2. Mirror-image disc herniation L5-S1 left paracentral with contact of the exiting S1 nerve root sleeve, see image 12 series 7. Two levels of small disc herniation and nerve root sleeve contact are present at L3-L4 and L5-S1, see the axial images referenced above. Dwayne Lockett MD MR ORDERABLES * XR EYE FOREIGN BODY [id number] (05/09/2016 7:35 AM CDT) Anatomical Region Laterality Modality Head Radiographic Samantha ging 05/09/2016 7:44 AM CDT Impressions 05/09/2016 8:41 AM CDT No metallic foreign body identified in either orbit. Narrative 05/09/2016 8:41 AM CDT TWO VIEWS OF THE ORBITS 05/09/2016: CLINICAL HISTORY: Occupational metal exposure. Clearance prior to MRI examination. FINDINGS: Frontal views of orbits obtained with patient looking up and looking down. No radiopaque foreign body identified about the orbits. No gross sinusitis identified on either side. Procedure Note Remberto Byrnes MD - 05/09/2016 TWO VIEWS OF THE ORBITS 05/09/2016: CLINICAL HISTORY: Occupational metal exposure. Clearance prior to MRI examination. FINDINGS: Frontal views of orbits obtained with patient looking up and looking down. No radiopaque foreign body identified about the orbits. No gross sinusitis identified on either side. IMPRESSION No metallic foreign body identified in either orbit. Dwayne Kevin Amorado MD DIAGNOSTIC IMAGIN G ORDERABLES * HEPATITIS SCREEN ACUTE W/ REFLX CONFIRM (05/02/2016 4:18 PM CDT) Hepatitis A Virus Antibody IgM Negative Negative 05/04/2016 10:59 AM [facility] [employer] ([facility]) Hepatitis B Virus Surface Antigen Negative Negative 05/04/2016 10:59 AM [facility] [employer] ([facility]) Comment: Based on the non-reactive HBsAg screen, the HBsAg Confirmation test is not indicated and therefore not performed. INTERPRETIVE INFORMATION: Hepatitis B Surface Ag This assay should not be used for blood donor screening, associated re-entry protocols, or for screening Human Cells, Tissues and Cellular and Tissue-Based Products (HCT/P). Hepatitis B Core Virus Antibody IgM Negative Negative 05/04/2016 10:59 AM [facility] [employer] ([facility]) Comment: INTERPRETIVE INFORMATION: Hepatitis B Core Ab, IgM This assay should not be used for blood donor screening, associated re-entry protocols, or for screening Human Cells, Tissues and Cellular and Tissue-Based Products (HCT/P). Interpretation Hepatitis C Antibody TANA Negative Negative 05/04/2016 10:59 AM [facility] [employer] ([facility]) Comment: INTERPRETIVE INFORMATION: Hepatitis C Virus Antibody by ATNA Index: 0.79 IV or less .................. Negative 0.80 to 0.99 IV .................. Equivocal 1.00 to 10.99 IV ................. Low Positive 11.00 IV or greater .............. High Positive Index Value (IV) = Anti-HCV signal to cutoff (S/C)ratio This assay should not be used for blood donor screening, associated re-entry protocols, or for screening Human Cells, Tissues and Cellular and Tissue-Based Products (HCT/P). Interpretation Hepatitis Acute Panel See Note 05/04/2016 10:59 AM [facility] [employer] ([facility]) Comment: The acute hepatitis panel is negative. There is no evidence of acute hepatitis A, B, or C. Interpretation Hepatitis C Antibody Index 0.21 IV 05/04/2016 10:59 AM [facility] [employer] ([facility]) Comment: Performed by [facility], [address] [place] [address] [email or web address], Juan Luis Eaton MD, Lab. Director Blood specimen (specimen) BLOOD SPECIMEN / Unknown Venipuncture / Unknown 05/02/2016 4:18 PM CDT 05/02/2016 4:18 PM CDT Dwayne Lockett MD LAB - CHEMISTRY O RDERABLES [facility] [employer] ([facility]) [address] [place] [address], [facility] * (ABNORMAL) HEPATIC FUNCTION PANEL (04/13/2016 7:57 AM CDT) Alkaline Phosphatase 53 40 - 150 U/L 04/13/2016 11:08 AM CDT AM LABORATORY ALT 81(H) 5 - 55 U/L 04/13/2016 11:08 AM CDT AM LAB[facility]ATORY AST 38(H) 5 - 34 U/L 04/13/2016 11:08 AM CDT [facility] Protein Total 7.0 6.4 - 8.3 gm/dL 04/13/2016 11:08 AM CDT AM LABORATORY Albumin 3.9 3.5 - 5.0 gm/dL 04/13/2016 11:08 AM CDT AM LABORATORY Bilirubin Total 0.6 0.2 - 1.2 mg/dL 04/13/2016 11:08 AM CDT [facility] Bilirubin Direct 0.26 0 - 0.5 mg/dL 04/13/2016 11:08 AM CDT AM LABORATORY Albumin/Globulin Ratio 1.3 0.9 - 1.6 04/13/2016 11:08 AM CDT AM LABORATORY Globulin Total 3.1 2.6 - 4.0 gm/dL 04/13/2016 11:08 AM CDT AM LABORATORY Bilirubin Indirect 0.3 0.2 - 0.9 mg/dL 04/13/2016 11:08 AM CDT AM LAB[facility]ATORY Blood BLOOD SPECIMEN / Unknown Venipuncture / Unknown 04/13/2016 7:57 AM CDT 04/13/2016 7:57 AM CDT Dwayne Lockett MD LAB - CHEMISTRY O RDERABLES Performing Organization Address City/[facility] Co de Phone Number [facility] [address] * PROSTATE SPECIFIC ANTIGEN DIAGNOSTIC (04/13/2016 7:42 AM CDT) PSA 0.40 0.10 - 4.00 ng/mL 04/13/2016 2:02 PM CDT [facility] Blood BLOOD SPECIMEN / Unknown Venipuncture / Unknown 04/13/2016 7:42 AM CDT 04/13/2016 7:42 AM CDT Dwayne Lockett MD LAB - CHEMISTRY O RDERABLES Performing Organization Address [facility] Co de Phone Number [facility] [address] * D-DIMER (12/27/2014 6:15 PM MANAGER ERP) Pathologist [facility] D-Dimer 0.34 <0.5 mg/L FEU 12/27/2014 6:42 PM MANAGER ERP [facility] Blood BLOOD SPECIMEN / Unknown Collection / Unknown 12/27/2014 6:15 PM MANAGER ERP 12/27/2014 6:27 PM MANAGER ERP Narrative [facility] - 12/27/2014 6:42 PM MANAGER ERP D-Dimer Note - [employer] D-Dimer assay should only be used in conjunction with an appropriate algorithm for diagnosis of DVT/PE and must be interpreted in combination with clinical probability. D-Dimer results of <0.50 mg/L FEU (exclusion cut-off level) is only useful to exclude diagnosis of DVT/PE in patients with low to moderate pretest probability. A very low percentage of patients with a distal VTE may yield a D-Dimer result below the cut-off value. An elevated D-Dimer result may indicate DIC in the appropriate clinical setting. Dwayne Lockett MD LAB - COAGULATION ORDERABLES Performing Organization Address [facility] Co de Phone Number [facility] [address] * B-TYPE NATRIURETIC PEPTIDE (12/27/2014 6:15 PM MANAGER ERP) Pathologist [facility] BNP 24 10 - 100 pg/mL 12/27/2014 7:01 PM MANAGER ERP [facility] Blood BLOOD SPECIMEN / Unknown Collection / Unknown 12/27/2014 6:15 PM MANAGER ERP 12/27/2014 6:27 PM MANAGER ERP Dwayne Lockett MD LAB - CHEMISTRY O RDERABLES [facility] [address] * INFLUENZA A+B - POINT OF CARE (AMB) (11/30/2014 4:30 PM MANAGER ERP) [facility] Influenza A Antigen Rapid Negative Negative Influenza B Antigen Rapid Negative Negative Influenza Internal Control NEGATIVE - POSITIVE Influenza Lot Number Influenza Expiration Date Nasopharyngeal swab (specimen) NASOPHARYNGEAL SWAB / Unknown 11/30/2014 4:30 PM MANAGER ERP Dwayne Lockett MD LAB - POINT OF CA RE ORDERABLES * POLYSOMNOGRAPHY (10/06/2014) [facility] * POLYSOMNOGRAPHY (07/08/2014) [facility] * PO REF LAB-SPECIMEN STATUS REPORT (07/01/2014 7:45 AM CDT) [facility] Specimen Status Report NOT NEEDED [facility] ACCOUNT BILL Comment: Quantity was not sufficient for analysis. TEST: [id number] Sedimentation Rate-Westergren Ancillary determined the test is not needed 07/01/2014 7:45 AM CDT 07/01/2014 9:48 PM CDT Narrative Resulting Agency Comment [facility] [address] [phone] Dwayne Lockett MD LAB - CHEMISTRY O RDERACATARINO [facility] ACCOUNT BILL Care Teams Web Machine Tender Relationship Specialty Start Date End Date Lexy Srivastava MD [facility] [place] [address] PCP - General Internal Medicine 12/15/24
--- OUTSIDE RECORDS SUMMARY | 2025-01-08 13:58 | XMS_ITS | Referral Summary ---
Author Organization [facility] Address [address] [place] [address] Care Team Providers Care Recreation Professor Name Role Phone Lexy Srivastava MD Primary Care Provider [phone] Source Comments [facility],non-owned Affiliates and Associated Physician Practices is amultiple site organization consisting of ambulatory clinics and hospital sitesin [place], [place], [place] and [place]. This disclosure is being madepursuant to the Care Everywhere program and may not contain all information available regarding this patient. Last updated 18.[facility] Encounters Date Type Department Care Team Description 12/25/2024 Orders Only [address] [phone] Lexy Srivastava MD CLARK (nonalcoholic steatohepatitis) 12/25/2024 8:30 AM ANIMAL HUSBANDRY MANAGER - 12/25/2024 11:59 PM ANIMAL HUSBANDRY MANAGER Hospital Encounter [facility] [address] [place] [address] Lexy Srivastava MD Discharge Disposition: Home or Self Care 12/22/2024 Travel 12/19/2024 Orders Only [address] [phone] Lexy Srivastava MD Elevated liver enzymes 12/16/2024 7:36 AM ANIMAL HUSBANDRY MANAGER - 12/16/2024 11:59 PM ANIMAL HUSBANDRY MANAGER Hospital Encounter [facility] - Lab [address] [place] [address] Lexy Srivastava MD Discharge Disposition: Home or Self Care 12/15/2024 Travel 12/15/2024 1:00 PM ANIMAL HUSBANDRY MANAGER Office Visit [address] [phone] Lexy Srivastava MD Encounter to establish care (Primary Dx); Fatigue, unspecified type; Parkinson'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 (HCC); PAUL (obstructive sleep apnea) 12/04/[address] [phone] Marcial Dalal APRN-NAVAL SCIENCE TEACHER Refill Request 10/20/2024 5:35 PM ANIMAL HUSBANDRY MANAGER - 10/20/2024 11:59 PM ANIMAL HUSBANDRY MANAGER Hospital Encounter [facility] [address] [place] [address] Salvador Lombardi MD Discharge Disposition: Home or Self Care 10/20/2024 4:45 PM ANIMAL HUSBANDRY MANAGER - 10/20/2024 5:34 PM ANIMAL HUSBANDRY MANAGER Hospital Encounter [facility] Imaging Services - MRI [address] [place] [address] Salvador Lombardi MD Discharge Disposition: Home or Self Care 10/15/[address] [phone] Erika Barber DO Encounter Opened In Error 10/15/2024 11:00 AM ANIMAL HUSBANDRY MANAGER Video Visit [address] [phone] Erika Barber DO PAUL (obstructive sleep apnea) 10/13/[address] [phone] Marcial Dalal, TAR HEATER-NAVAL SCIENCE TEACHER Results from Last 3 Months Allergies No known active allergies Medications * Be aware that medications may not be up to date on this document. Alwaysverify current medications with the patient. Medication Sig Dispensed Refills Start Date End Date Status carbidopa-levodopa (Sinemet) 25-100 MG tablet Take 1 (one) tablet by mouth as directed 3 tabs 6 times a day Neuro prescribes Active folic acid-vit B6-vit B12 (Folbee) 2.5-25-1 MG tablet Take 1 (one) tablet by mouth once daily 90 tablet 1 03/07/2024 Active predniSONE (Deltasone) 10 MG tablet 40 mg po x 1 day, 30 mg po x 3 days, 20 mg po x 3 days, 10 mg po x 3 days 22 tablet 09/27/2024 Active Additional Information Patient not taking.Reported on 12/15/2024 silodosin (Rapaflo) 8 MG capsule TAKE 1 (ONE) CAPSULE BY MOUTH DAILY WITH BREAKFAST 90 capsule 1 12/04/2024 Active Cholecalciferol 125 MCG (5000 UT) TBDP Take by mouth. Active Zinc Sulfate (ZINC 15 PO) Zinc Active Multiple Vitamin (MULTIVITAMIN ADULT PO) Multivitamin Active TURMERIC PO Turmeric Active Active Problems Problem Noted Date Diagnosed Date Parkinson's disease with dys kinesia and fluctuating manifestations 09/29/2019 Resolved Problems Problem Noted Date Diagnosed Date Resolved Date Ataxia 09/29/2019 03/09/2023 Elevated LFTs 05/02/2016 03/09/2023 Sleep apnea 12/06/2015 03/09/2023 Overview (05/23/2021): Sleep apnea Gastroesophageal reflux dise ase without esophagitis 07/27/2015 10/25/2021 Obesity 07/27/2015 03/09/2023 Hyperuricemia 07/27/2015 03/09/2023 Asthma, exercise induced 01/04/2015 Gout 08/04/2013 03/09/2023 Overview (07/29/2015): Immunizations Name Administration Dates Next Due COVID MODERNA 12+ yr 50mcg/0.5mL 10/08/2023 COVID MODERNA BIVALENT 12Y+ 50MCG/0.5ML 07/20/2022 Covid Moderna primary monova lent 12+ yr 0.5mL 02/06/2022,08/17/2021,12/21/2020,2020 HEP A VACCINE, ADULT 07/02/2020 HEP A/HEP B 05/27/2018 INFLUENZA VACCINE 08/17/2021,,07/21/2019,2017,08/14/2017,08/11/2016,09/06/2015,0 07/28/2013 INFLUENZA VACCINE, QUADR. (F LUZONE; FLULAVAL; FLUARIX; AFLURIA QUADRIVALENT; 6MO+), 0.5 ML (IIV4) 08/01/2023,07/02/2020,07/27/2018,2014 INFLUENZA VACCINE, TRIV. (FL UZONE; FLULAVAL; FLUARIX; AFLURIA TRIVALENT; 6MO+), 0.5 ML (IIV3) 09/05/2024 PNEUMOCOCCAL PCV20 CONJ VAC IM 05/16/2022 Zoster Hzv Vacc Recombinant Inj Im 10/21/2019,,04/21/2019 Social History Tobacco Use Types Packs/Day Years [...] Comments Blood Pressure 111/79 12/15/2024 1:10 PM ANIMAL HUSBANDRY MANAGER Pulse 75 12/15/2024 1:10 PM ANIMAL HUSBANDRY MANAGER Temperature 36.7 C (98 F) 12/15/2024 1:10 PM ANIMAL HUSBANDRY MANAGER Respiratory Rate 18 11/09/2023 10:1 3 AM ANIMAL HUSBANDRY MANAGER Oxygen Saturation 96% 12/15/2024 1:10 PM ANIMAL HUSBANDRY MANAGER Inhaled Oxygen Concentration - - Weight 130.9 kg (288 lb 9.6 oz) 12/15/2024 1:10 PM ANIMAL HUSBANDRY MANAGER Height 182.9 cm (6') 12/15/2024 1:10 PM ANIMAL HUSBANDRY MANAGER Body Mass Index 39.14 12/15/2024 1:10 PM ANIMAL HUSBANDRY MANAGER Plan of Treatment Upcoming Encounters Date Type Department Care Team (Late st Contact Info) Description 03/16/2025 10:40 AM CDT Office Visit [facility] - Family Medicine [address] [place] [address] Lexy Srivastava MD [address] [place] [address] Procedures Procedure Name Priority Date/Time Associated Diagnosis Comments US ABDOMEN LIMITED Routine 12/25/2024 9: 08 AM ANIMAL HUSBANDRY MANAGER Elevated liver enzymes ERYTHROCYTE SEDIMENTATION RATE Routine 12/16/2024 7:36 AM ANIMAL HUSBANDRY MANAGER Fatigue, unspecified type VITAMIN D 25-HYDROXY Routine 12/16/2024 7:36 AM ANIMAL HUSBANDRY MANAGER Encounter to establish care Fatigue, unspecified type Parkinson'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 (HCC) LIPID PROFILE Routine 12/16/2024 7:36 AM ANIMAL HUSBANDRY MANAGER Encounter to establish care Fatigue, unspecified type Parkinson'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 (HCC) HEMOGLOBIN A1C Routine 12/16/2024 7:36 AM ANIMAL HUSBANDRY MANAGER Encounter to establish care Fatigue, unspecified type Parkinson'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 (HCC) COMPREHENSIVE METABOLIC PANEL Routine 12/16/2024 7:36 AM ANIMAL HUSBANDRY MANAGER Encounter to establish care Fatigue, unspecified type Parkinson'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 (HCC) CBC W AUTO DIFFERENTIAL Routine 12/16/2024 7:36 AM ANIMAL HUSBANDRY MANAGER Encounter to establish care Fatigue, unspecified type Parkinson'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 (HCC) MICROALB/CREAT RATIO URINE RANDOM PANEL Routine 12/16/2024 7:36 AM ANIMAL HUSBANDRY MANAGER Encounter to establish care Fatigue, unspecified type Parkinson'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 (HCC) IMAGING/RADIOLOGY/XRA Y RESULTS ORDER 12/04/2024 MRI LUMBAR SPINE WWO CONTRAST Routine 10/20/2024 7:02 PM ANIMAL HUSBANDRY MANAGER Lumbar radiculitis XR ORBITS SCREEN FOR MRI Routine 10/20/2024 5:40 PM ANIMAL HUSBANDRY MANAGER Encounter for imaging to screen for metal prior to MRI COLONOSCOPY 09/14/2022 from Last 3 Months or Most Recently Relevant to Health Maintenance Results * US ABDOMEN LIMITED (12/25/2024 9:08 AM ANIMAL HUSBANDRY MANAGER) Anatomical Region Laterality Modality Abdomen Ultrasound 12/25/2024 10:2 9 AM ANIMAL HUSBANDRY MANAGER Impressions 12/25/2024 10:30 AM ANIMAL HUSBANDRY MANAGER IMPRESSION: Fatty liver. No cholelithiasis or cholecystitis > Interpreting Provider: Janes Oakley MD on 12/25/2024 10:30 AM Narrative 12/25/2024 10:30 AM ANIMAL HUSBANDRY MANAGER PROCEDURE: US ABDOMEN LIMITED DATE/TIME OF EXAM: 12/25/2024 9:08 AM CLINICAL INFORMATION: None relevant/not provided if blank. Indication: R74.8: Elevated liver enzymes Additional History: COMPARISON: None. TECHNIQUE: Real-time ultrasound of the upper abdomen with DICOM image capture performed by lead technologist in cytogenetics. FINDINGS: No intrahepatic ductal dilatation or mass [...] abdomen with DICOM image capture performed by lead technologist in cytogenetics. FINDINGS: No intrahepatic ductal dilatation or mass [...] RATIO URINE RANDOM PANEL (12/16/2024 7:36 AM ANIMAL HUSBANDRY MANAGER) Creatinine Urine 173.8 mg/dL 12/16/19 12:28 PM ANIMAL HUSBANDRY MANAGER [facility] Microalbumin Urine 0.8 mg/dL 12/16/2024 12:28 PM ANIMAL HUSBANDRY MANAGER [facility] Microalbumin/Crea tinine Ratio <5 Normal: <30 mg/g, Microalbum inuria: 30-299 mg/g, Macroalbum inuria: >=300 mg/g mg/g 12/16/2024 12:28 PM ANIMAL HUSBANDRY MANAGER [facility] Urine URINE SPECIMEN OBTAINED BY CLEAN CATCH PROCEDURE / Unknown Collection / Unknown 12/16/2024 7:36 AM ANIMAL HUSBANDRY MANAGER 12/16/2024 7:36 AM ANIMAL HUSBANDRY MANAGER Lexy Srivastava MD LAB - URINE CHEMISTR Y ORDERABLES [facility] [address] * (ABNORMAL) HEMOGLOBIN A1C (12/16/2024 7:36 AM ANIMAL HUSBANDRY MANAGER) Hemoglobin A1c 5.7(H) 4.2 - 5.6 % 12/16/2024 12:27 PM ANIMAL HUSBANDRY MANAGER [facility] Estimated Average Glucose 117 mg/dL 12/16/2024 12:27 PM ANIMAL HUSBANDRY MANAGER [facility] Blood BLOOD SPECIMEN WITH EDTA / Unknown Venipuncture / Unknown 12/16/2024 7:36 AM ANIMAL HUSBANDRY MANAGER 12/16/2024 7:36 AM ANIMAL HUSBANDRY MANAGER Narrative [facility] - 12/16/2024 12:27 PM ANIMAL HUSBANDRY MANAGER HbA1c Interpretation: Normal: < 5.7% Pre-diabetes: 5.7-6.4% [...] - CHEMISTRY ROSS CHAUD[facility]ARY Performing Organization Address City/[facility] Co de Phone Number [facility] [address] * VITAMIN D 25-HYDROXY (12/16/2024 7:36 AM ANIMAL HUSBANDRY MANAGER) [facility] Vitamin D, 25 Hydroxy 44.1 30 - 80 ng/mL 12/16/2024 12:41 PM ANIMAL HUSBANDRY MANAGER [facility] Blood BLOOD SPECIMEN / Unknown Venipuncture / Unknown 12/16/2024 7:36 AM ANIMAL HUSBANDRY MANAGER 12/16/2024 7:36 AM ANIMAL HUSBANDRY MANAGER Lexy Srivastava MD LAB - CHEMISTRY ROSS [place] Performing Organization Address City/[facility]/ZIP Co de Phone Number [facility] [address] * ERYTHROCYTE SEDIMENTATION RATE (12/16/2024 7:36 AM ANIMAL HUSBANDRY MANAGER) [facility] Erythrocyte Sedimentation Rate Automated 4 <20 MM/HR 12/16/2024 12:08 PM ANIMAL HUSBANDRY MANAGER [facility] Blood BLOOD SPECIMEN / Unknown Venipuncture / Unknown 12/16/2024 7:36 AM ANIMAL HUSBANDRY MANAGER 12/16/2024 7:36 AM ANIMAL HUSBANDRY MANAGER Lexy Srivastava MD LAB - HEMATOLOGY ORD ERABLES [facility] [address] [place] [address], [facility] * CBC WITH DIFFERENTIAL (12/16/2024 7:36 AM ANIMAL HUSBANDRY MANAGER) WBC 8.5 4.0 - 10.7 x10E9/L 12/16/2024 11:53 AM [facility] RBC Count 4.92 4.30 - 5.80 x10E12/L 12/16/2024 11:53 AM [facility] Hemoglobin 15.0 13.3 - 17.5 g/dL 12/16/2024 11:53 AM [facility] Hematocrit 45.1 38.7 - 51.1 % 12/16/2024 11:53 AM [facility] MCV 91.7 80.0 - 98.0 fL 12/16/2024 11:53 AM [facility] MCH 30.5 26.7 - 33.6 pg 12/16/2024 11:53 AM [facility] MCHC 33.3 31.7 - 36.3 g/dL 12/16/2024 11:53 AM [facility] RDW-CV 12.4 11.3 - 14.8 % 12/16/2024 11:53 AM [facility] Platelet Count 276 150 - 420 x10E9/L 12/16/2024 11:53 AM [facility] MPV 10.2 7.8 - 11.4 fL 12/16/2024 11:53 AM [facility] Neutrophil % 63.1 41.0 - 74.0 % 12/16/2024 11:53 AM [facility] Lymphocyte % 23.6 17.0 - 47.0 % 12/16/2024 11:53 AM [facility] Monocyte % 8.3 3.0 - 11.0 % 12/16/2024 11:53 AM [facility] Eosinophil % 4.0 0.0 - 7.0 % 12/16/2024 11:53 AM [facility] Basophil % 0.8 0.0 - 1.6 % 12/16/2024 11:53 AM [facility] Immature Granulocytes % 0.2 0.0 - 1.0 % 12/16/2024 11:53 AM [facility] Neutrophil Absolute 5.37 1.60 - 7.50 x10E9/L 12/16/2024 11:53 AM [facility] Lymphocyte Absolute 2.01 1.00 - 4.40 x10E9/L 12/16/2024 11:53 AM [facility] Monocyte Absolute 0.71 0.15 - 1.00 x10E9/L 12/16/2024 11:53 AM [facility] Eosinophil Absolute 0.34 0.00 - 0.60 x10E9/L 12/16/2024 11:53 AM [facility] Basophil Absolute 0.07 0.00 - 0.13 x10E9/L 12/16/2024 11:53 AM [facility] Blood BLOOD SPECIMEN / Unknown Venipuncture / Unknown 12/16/2024 7:36 AM ANIMAL HUSBANDRY MANAGER 12/16/2024 7:36 AM [facility] Lexy Srivastava MD LAB - HEMATOLOGY ORD ERABLES [facility] [address] * (ABNORMAL) COMPREHENSIVE METABOLIC PANEL (12/16/2024 7:36 AM ANIMAL HUSBANDRY MANAGER) [facility] Glucose 122 70 - 125 mg/dL 12/16/2024 12:08 PM [facility] Sodium 142 136 - 145 mmol/L 12/16/2024 12:08 PM [facility] Potassium 4.4 3.4 - 5.1 mmol/L 12/16/2024 12:08 PM [facility] Chloride 104 98 - 107 mmol/L 12/16/2024 12:08 PM [facility] CO2 28 22 - 29 mmol/L 12/16/2024 12:08 PM [facility] Calcium 10.19 8.4 - 10.2 mg/dL 12/16/2024 12:08 PM [facility] Anion Gap 10 6 - 16 mmol/L 12/16/2024 12:08 PM [facility] BUN 16.4 8.4 - 25.7 mg/dL 12/16/2024 12:08 PM [facility] Creatinine 1.01 0.72 - 1.25 mg/dL 12/16/2024 12:08 PM [facility] Alkaline Phosphatase 46 40 - 150 U/L 12/16/2024 12:08 PM [facility] ALT 70(H) <=55 U/L 12/16/2024 12:08 PM [facility] AST 54(H) 5 - 34 U/L 12/16/2024 12:08 PM [facility] Protein Total 8.0 6.4 - 8.3 gm/dL 12/16/2024 12:08 PM [facility] Albumin 4.4 3.4 - 4.8 gm/dL 12/16/2024 12:08 PM [facility] Globulin Total 3.6 2.6 - 4.0 gm/dL 12/16/2024 12:08 PM [facility] Albumin/Globulin Ratio 1.2 0.9 - 1.6 12/16/2024 12:08 PM [facility] Bilirubin Total 0.8 0.2 - 1.2 mg/dL 12/16/2024 12:08 PM [facility] eGFR 83(L) >90 mL/min/1.7 3m2 12/16/2024 12:08 PM [facility] Comment:The GFR result was c alculated using the updated CKD-EPI Creatinine Equation (2020). Blood BLOOD SPECIMEN / Unknown Venipuncture / Unknown 12/16/2024 7:36 AM ANIMAL HUSBANDRY MANAGER 12/16/2024 7:36 AM [facility] Lexy Srivastava MD LAB - CHEMISTRY ROSS [facility] Organization Address City/State/ZIP Co de Phone Number [facility] [address] [place], [place] [address] * (ABNORMAL) LIPID PROFILE (12/16/2024 7:36 AM ANIMAL HUSBANDRY MANAGER) Cholesterol 156 <200 mg/dL 12/16/2024 12:08 PM [facility] Triglycerides 109 <150 mg/dL 12/16/2024 12:08 PM ANIMAL HUSBANDRY MANAGER [facility] HDL Cholesterol 38(L) >40 mg/dL 12:08 PM [facility] Chol HDL Ratio 4.1 1.0 - 6.0 12/16/2024 12:08 PM [facility] LDL Calculated 96 65 - 130 mg/dL 12/16/2024 12:08 PM [facility] VLDL Calculated 22 <=30 mg/dL 12:08 PM [facility] Blood BLOOD SPECIMEN / Unknown Venipuncture / Unknown 12/16/2024 7:36 AM ANIMAL HUSBANDRY MANAGER 12/16/2024 7:36 AM [facility] Narrative [facility] - 12/16/2024 12:08 PM [facility] Lipid Profile Comment: CHOLESTEROL LEVEL..................CLINICAL INTERPRETATION LESS [...] Srivastava MD LAB - CHEMISTRY ROS[facility] Organization Address City/State/ZIP Co de Phone Number [address] [address] * IMAGING RADIOLOGY XRAY RESULTS ORDER (12/04/2024) Anatomical Region Laterality Modality Other 12/04/2024 Narrative 12/04/2024 Ordered by an unspecified provider. Scanned Document IMAGING * MRI LUMBAR SPINE W WO CONTRAST [id number] (10/20/2024 7:02 PM ANIMAL HUSBANDRY MANAGER) Anatomical Region Laterality Modality Spine Magnetic Resonan ce 10/24/2024 1:34 PM ANIMAL HUSBANDRY MANAGER Impressions 10/24/2024 1:45 PM ANIMAL HUSBANDRY MANAGER IMPRESSION: 1. New left foraminal disc extrusion [...] 10/24/2024 1:45 PM Narrative 10/24/2024 1:45 PM ANIMAL HUSBANDRY MANAGER PROCEDURE: MRI LUMBAR SPINE WWO CONTRAST DATE/TIME [...] MR ORDERABLES * XR EYE FOREIGN BODY [id number] (10/20/2024 5:40 PM ANIMAL HUSBANDRY MANAGER) Anatomical Region Laterality Modality Head Computed Radiogr aphy 10/20/2024 5:51 PM ANIMAL HUSBANDRY MANAGER Impressions 10/20/2024 5:52 PM ANIMAL HUSBANDRY MANAGER IMPRESSION: Examination is negative for foreign body. > Interpreting Provider: Janes Oakley MD on 10/20/2024 5:52 PM Narrative 10/20/2024 5:52 PM ANIMAL HUSBANDRY MANAGER PROCEDURE: XR ORBITS SCREEN FOR MRI 10/20/2024 [...] Oakley MD DIAGNOSTIC IMAGING O RDERABLES * COLONOSCOPY (09/14/2022) 09/14/2022 Narrative 09/14/2022 Ordered by an unspecified provider. Scanned Document SCANNING ONLY from Last 3 Months or Most Recently Relevant to Health Maintenance Care Teams Recreation Professor Relationship Specialty Start Date End Date Lexy Srivastava MD [address] [place], [place] [id number] PCP - General Internal Medicine 12/15/24
--- OUTSIDE RECORDS SUMMARY | 2025-01-08 13:58 | XMS_ITS | Clinical Summary ---
Author Organization [facility] Address [address] [place] [address] Phone Care Team Providers Care Public Works Technician Name Role Phone Jung Lockett MD Primary Care Provider Unavail able Allergies No known active allergies Medications carbidopa-levod opa (Rytary) 48.75-195 mg Capsule, Sustained Release Take 3 Capsules by mouth 3 times daily. Active allopurinoL (ZYLOPRIM) 300 mg tablet Take 300 mg by mouth daily. Active multivitamin (DAILY-KENY) tablet Take 1 Tablet by mouth daily. Active Active Problems No known active problems Social History Tobacco Use Types Packs/Day Years Used Date Smoking Tobacco: Never Smokeless Tobacco: Never Tobacco Cessation:Counseling Given: Not Answered Alcohol Use Standard Drinks/Week Comments Not Currently 0 (1 standard drink = 0.6 oz pur e alcohol) Sex and Gender Information Value Date Recorded Sex Assigned at Not on file Legal Sex Male 12:11 PM PROJECT ASSOCIATE Gender Identity Not on file Sexual Orientation Not on file Last Filed Vital Signs Vital Sign Reading Time Taken Comments Blood Pressure 141/81 09/14/2022 9:53 AM PROJECT ASSOCIATE Pulse 57 09/14/2022 9:53 AM PROJECT ASSOCIATE Temperature 36.1 C (97 F) 09/14/2022 9:36 AM PROJECT ASSOCIATE Respiratory Rate 16 09/14/2022 9:53 AM PROJECT ASSOCIATE Oxygen Saturation 97% 09/14/2022 9:53 AM PROJECT ASSOCIATE Inhaled Oxygen Concentration - - Weight 124.7 kg (275 lb) 09/14/2022 7:59 AM PROJECT ASSOCIATE Height 182.9 cm (6') 09/14/2022 7:59 AM PROJECT ASSOCIATE Body Mass Index 37.3 09/14/2022 7:59 AM PROJECT ASSOCIATE Plan of Treatment Health Maintenance Due Date Last Done Comments DTAP/TDAP/TD VACCINES (1 - Tdap) 1978 FIT-DNA Q 3 years 2004 FIT/FOBT Q 1 year 2004 Flex Sig/CT Colonography Q 5 years 2004 PNEUMOCOCCAL VACCINE 50+ YEA RS (1 of 1 - PCV) 2009 INFLUENZA VACCINE (#1) 2024 , 07/27/2018, 07/29/2015 COVID-19 Vaccine ( season) 2024 08/17/2021, 12/21/2020, 11/17/2020 COLORECTAL SCREENING 09/14/2027 09/14/2022, 09/14/2022, 12/31/2009 Colorectal Cancer Screening 09/14/2027 RSV VACCINE (60+ or ) (1 - 1-dose 75+ series) 2034 ZOSTER VACCINE Completed 10/21/2019, 01/2019, 04/21/2019 Procedures Procedure Name Priority Date/Time Associated Diagnosis Comments COLONOSCOPY REPORT 09/14/2022 9: 37 AM PROJECT ASSOCIATE from Last 3 Months or Most Recently Relevant to Health Maintenance Results * COLONOSCOPY REPORT (09/14/2022 9:37 AM PROJECT ASSOCIATE) Narrative Procedure Note Olman Acosta MD - 09/14/2022 9:37 AM CST [facility] Endoscopy Patient Name: Ezra Shelby Procedure Date: 09/14/2022 Date of : 1960 Attending MD: Olman Acosta MD, Procedure: Colonoscopy Indications: Screening for colorectal malignant neoplasm Providers: Olman Acosta MD Referring MD: Jung Lockett MD Medicines: Monitored Anesthesia Care Complications: No immediate complications. Procedure: Informed consent was obtained for the procedure, including moderate sedation after risks were discussed. Based on the pre-procedure assessment, including review of the patient's medical history, medications, allergies, and review of systems, the patient was deemed to be an appropriate candidate for sedation. A timeout was performed. Continuous ECG monitoring, pulse oximetry, blood pressure monitoring, and direct observation were performed. The Colonoscope was introduced through the anus and advanced to the terminal ileum. The colonoscopy was performed without difficulty. The patient tolerated the procedure well. The quality of the bowel preparation was adequate. The terminal ileum, ileocecal valve, appendiceal orifice, and rectum were photographed. Estimated Blood Loss: Estimated blood loss was minimal. Findings: Hemorrhoids were found on perianal exam. Multiple diverticula were found in the sigmoid colon and descending colon. Two sessile polyps were found in the ascending colon. The polyps were 4 to 5 mm in size. These polyps were removed with a cold snare. Resection and retrieval were complete. A 3 mm polyp was found in the sigmoid colon. The polyp was sessile. The polyp was removed with a cold snare. Resection and retrieval were complete. Internal hemorrhoids were found during retroflexion. The hemorrhoids were medium-sized. The terminal ileum appeared normal. Impression: - Hemorrhoids found on perianal exam. - Diverticulosis in the sigmoid colon and in the descending colon. - Two 4 to 5 mm polyps in the ascending colon, removed with a cold snare. Resected and retrieved. - One 3 mm polyp in the sigmoid colon, removed with a cold snare. Resected and retrieved. - Internal hemorrhoids. - The examined portion of the ileum was normal. Recommendation: - Repeat colonoscopy in 3 - 5 years for surveillance based on pathology results. Olman Acosta MD 09/14/2022 9:37:00 AM This report has been signed electronically. Number of Addenda: [address]; [place] [address] Olman Acosta MD GI PROCEDURE ORDERABL ES Final Result from Last 3 Months or Most Recently Relevant to Health Maintenance Insurance [facility] BLUE ACCESS CHOICE Care Teams Public Works Technician Relationship Specialty Start Date End Date Jung Lockett MD PCP - General Internal Medicine 03/10/22
--- OUTSIDE RECORDS SUMMARY | 2025-01-08 13:58 | XMS_ITS ---
Author Organization [facility] Address [address] [place] [address] Care Team Providers Care Colorer Name Role Phone Lexy Srivastava Primary Care Provider Pelon Marcus Unavailable [phone] ALLERGIES No Known Allergies RESULTS Component Value Reference Range Notes X ray : Lumbar Spine 3 views , AP, Lateral, Spot Reviewed date:12/09/2024 02:59:06 PM Interpretation:218 Performing Lab: Notes/Report: 218 REASON FOR REFERRAL Reason Eval and Treat Diagnosis 1 Low back pain at [facility] (M54.50) Referral Organization [facility] Referring Provider First Name Pelon Referring Provider Last Name Thais Referring Provider Speciality Orthopedic Surgery Referred Provider Specialty Physical The [facility] Referral Priority Routine REASON FOR VISIT Low back pain MEDICATIONS Medication SIG (Take, Route, Fr equency, [...] No Points 0 Interpretation Negative VITAL SIGNS BMI 37.97 kg/m2 12/09/2024 Height 72 in 12/09/2024 Weight 280 lbs 12/09/2024 PROCEDURES Procedure Date Ordered Date Performed Result Body Sit e Lumbar Selective Nerve Root Injection 12/09/2024 completed Encounters Encounter Location Date Provider Diagnosis [facility] [address] [place] [address] 12/09/2024 Pelon Plascencia Other low back pain M54.59 and Lumbar radiculopathy M54.16 ASSESSMENTS Encounter Date Diagnosis Assessment Notes Treatment Notes Treatment Clinical Notes 12/09/2024 Other low back pain (ICD-10 - M54.59) 12/09/2024 Lumbar radiculopathy (ICD-10 - M54.16) PLAN OF TREATMENT Referrals Referral Date Details Eval and Treat Progress Notes * Examination Category Sub-Category Detail Notes X-Ray LUMBAR X-RAY: AP and lateral v iews of the lumbar spine were obtained today. They demonstrate that his spine is leaning slightly to the left. There is mild to moderate disc space narrowing from L4 to S1 MRI Imaging Studies LUMBAR SPINE MRI: MRI of the lumbar spine from 10/20/2024 demonstrates mild to moderate left L5-S1 foraminal stenosis. There is mild left L4-5 foraminal stenosis, and mild left L4-5 lateral recessed stenosis. There is mild disc degeneration from L4 to S1 Consultation Request Notes Referral Date Referring Provider Referred Provider Not es 12/09/2024 Pelon Plascencia , Eval and Treat
--- OUTSIDE RECORDS SUMMARY | 2025-01-08 13:58 | XMS_ITS | Clinical Summary ---
Author Organization [facility] Address [address] [place] [address] Care Team Providers Care Stitching Machine Operator Name Role Phone Lexy Srivastava MD Primary Care Provider [phone] Source Comments [facility],non-owned Affiliates and Associated Physician Practices is amultiple site organization consisting of ambulatory clinics and hospital sitesin [place], [place], [place] and [place]. This disclosure is being madepursuant to the Care Everywhere program and may not contain all information available regarding this patient. Last updated 18.[facility] Allergies No known active allergies Medications * [...] induced 01/04/2015 Gout 08/04/2013 03/09/2023 Overview (07/29/2015): Encounters Date Type Department Care Team Description 12/25/2024 8:30 AM QUILT MAKER - 12/25/2024 11:59 PM QUILT MAKER Hospital Encounter [facility] [address] [place] [address] Lexy Srivastava MD Discharge Disposition: Home or Self Care 12/25/2024 Orders Only [facility] - Family Medicine [address] [place] [phone] Lexy Srivastava MD CLARK (nonalcoholic steatohepatitis) 12/22/2024 Travel 12/19/2024 Orders Only [facility] - Family Medicine [address] [place] [phone] Lexy Srivastava MD Elevated liver enzymes 12/16/2024 7:36 AM QUILT MAKER - 12/16/2024 11:59 PM QUILT MAKER Hospital Encounter [facility] - [facility] [place] [address] Lexy Srivastava MD Discharge Disposition: Home or Self Care 12/15/2024 1:00 PM QUILT MAKER Office Visit [address] [phone] Lexy Srivastava MD Encounter to establish care (Primary Dx); Fatigue, unspecified type; Parkinson'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 (HCC); PAUL (obstructive sleep apnea) 12/15/2024 Travel 12/04/[address] [phone] Marcial Dalal, TAX INVESTIGATOR-CATTLE STICKER Refill Request 10/20/2024 5:35 PM QUILT MAKER - 10/20/2024 11:59 PM QUILT MAKER Hospital Encounter [facility] [address] [place] [phone] Salvador Lombardi MD Discharge Disposition: Home or Self Care 10/20/2024 4:45 PM QUILT MAKER - 10/20/2024 5:34 PM QUILT MAKER Hospital Encounter [facility] - MRI [address] [place] [address] Salvador Lombardi MD Discharge Disposition: Home or Self Care 10/15/2024 11:00 AM QUILT MAKER Video Visit [address] [phone] Erika Barber DO PAUL (obstructive sleep apnea) 10/15/[address] [phone] Erika Barber DO Encounter Opened In Error 10/13/[address] [phone] Marcial Dalal, TAX INVESTIGATOR-CATTLE STICKER Results from Last 3 Months Immunizations Name Administration Dates Next Due COVID MODERNA 12+ yr 50mcg/0.5mL 10/08/2023 COVID MODERNA BIVALENT 12Y+ 50MCG/0.5ML 07/20/2022 Covid Moderna primary monova lent 12+ yr 0.5mL 02/06/2022,08/17/2021,12/21/2020,2020 HEP A VACCINE, ADULT 07/02/2020 HEP A/HEP B 05/27/2018 INFLUENZA VACCINE 08/17/2021, 0,07/21/2019,2017,08/14/2017,08/11/2016,09/06/2015,0 07/28/2013 INFLUENZA VACCINE, QUADR. (F LUZONE; FLULAVAL; FLUARIX; AFLURIA QUADRIVALENT; 6MO+), 0.5 ML (IIV4) 08/01/2023,07/02/2020,07/27/2018,2014 INFLUENZA VACCINE, TRIV. (FL UZONE; FLULAVAL; FLUARIX; AFLURIA TRIVALENT; 6MO+), 0.5 ML (IIV3) 09/05/2024 PNEUMOCOCCAL PCV20 CONJ VAC IM 05/16/2022 Zoster Hzv Vacc Recombinant Inj Im 10/21/2019,,04/21/2019 Family History Medical History Relation Name Comments Diabetes Brother Cancer - Other Father bone Hypertension Father Diabetes Maternal Grandfather Stroke Maternal Grandfather Diabetes Mother None Known Paternal Grandfather None Known Paternal Grandmother Relation Name Status Comments Brother Father Maternal Grandfather Mother Paternal Grandfather Paternal Grandmother Social History Tobacco Use Types Packs/Day Years [...] Comments Blood Pressure 111/79 12/15/2024 1:10 PM QUILT MAKER Pulse 75 12/15/2024 1:10 PM QUILT MAKER Temperature 36.7 C (98 F) 12/15/2024 1:10 PM QUILT MAKER Respiratory Rate 18 11/09/2023 10:1 3 AM QUILT MAKER Oxygen Saturation 96% 12/15/2024 1:10 PM QUILT MAKER Inhaled Oxygen Concentration - - Weight 130.9 kg (288 lb 9.6 oz) 12/15/2024 1:10 PM QUILT MAKER Height 182.9 cm (6') 12/15/2024 1:10 PM QUILT MAKER Body Mass Index 39.14 12/15/2024 1:10 PM QUILT MAKER Plan of Treatment Upcoming Encounters Date Type Department Care Team (Late st Contact Info) Description 03/16/2025 10:40 AM CDT Office Visit [facility] - Family Medicine [address] [place] [phone] Lexy Srivastava MD [address] [place] [address] Health Maintenance Due Date Last Done Comments COLOGUARD (AGES 45-75) - COLON CA SCREENING 1959 CT COLONOGRAPHY - COLON CA SCREENING 1959 FIT - COLON CA SCREENING 1959 FLEX SIG - COLON CA SCREENING 1959 HEPATITIS C SCREENING 10/21/1977 DTAP/TDAP/TD VACCINES (1 - Tdap) 1978 HEPATITIS B VACCINE (2 of 3 - Hep B Twinrix 3-dose series) 06/24/2018 05/27/2018 Respiratory Syncytial Virus (RSV) Vaccine Pt: or over 60 yrs (1 - Risk 60-74 years 1-dose series) 03/07/2025 Postponed fro m 2019 (Patient Directed) SCREENING FOR DIABETES 12/16/2027 , 12/16/2024, 09/05/2024, Additional history exists LIPID TESTING 12/16/2029 12/16/2024, 11/29, 10/28/2020, Additional history exists COLON MONITORING 09/14/2032 09/14/2022 COLONOSCOPY - COLON CA SCREENING 09/14/2032 09/14/2022, 12/31/2009 (Done Outside Per Patient) Colorectal Cancer Screening 09/14/2032 ZOSTER VACCINE Completed 10/21/2019, 1001/2019, 04/21/2019 PNEUMOCOCCAL VACCINE 50+ Completed 05/16/2022 INFLUENZA VACCINE Completed 09/05/2024, , 08/17/2021, Additional history exists COVID-19 VACCINE Completed 10/31/2024, 08/2023, 07/20/2022, Additional history exists DEPRESSION SCREENING Completed 12/15/2024, 11/09/2023, 03/07/2023, Additional history exists HIB VACCINE Aged Out No longer eligi ble based on patient's age to complete this topic HIV SCREENING Discontinued HPV VACCINE Aged Out No longer eligi ble based on patient's age to complete this topic MENINGOCOCCAL (Group B) VACCINE SHARED DECISION-MAKING Aged Out No longer eligible based on patient's age to complete this topic MENINGOCOCCAL GROUPS A/C/Y/W VACCINE Aged Out No longer eligible based on patient's age to complete this topic Procedures Procedure Name Priority Date/Time Associated Diagnosis Comments US ABDOMEN LIMITED Routine 12/25/2024 9: 08 AM QUILT MAKER Elevated liver enzymes ERYTHROCYTE SEDIMENTATION RATE Routine 12/16/2024 7:36 AM QUILT MAKER Fatigue, unspecified type VITAMIN D 25-HYDROXY Routine 12/16/2024 7:36 AM QUILT MAKER Encounter to establish care Fatigue, unspecified type Parkinson'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 (HCC) LIPID PROFILE Routine 12/16/2024 7:36 AM QUILT MAKER Encounter to establish care Fatigue, unspecified type Parkinson'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 (HCC) HEMOGLOBIN A1C Routine 12/16/2024 7:36 AM QUILT MAKER Encounter to establish care Fatigue, unspecified type Parkinson'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 (HCC) COMPREHENSIVE METABOLIC PANEL Routine 12/16/2024 7:36 AM QUILT MAKER Encounter to establish care Fatigue, unspecified type Parkinson'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 (HCC) CBC W AUTO DIFFERENTIAL Routine 12/16/2024 7:36 AM QUILT MAKER Encounter to establish care Fatigue, unspecified type Parkinson'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 (HCC) MICROALB/CREAT RATIO URINE RANDOM PANEL Routine 12/16/2024 7:36 AM QUILT MAKER Encounter to establish care Fatigue, unspecified type Parkinson'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 (HCC) IMAGING/RADIOLOGY/XRA Y RESULTS ORDER 12/04/2024 MRI LUMBAR SPINE WWO CONTRAST Routine 10/20/2024 7:02 PM QUILT MAKER Lumbar radiculitis XR ORBITS SCREEN FOR MRI Routine 10/20/2024 5:40 PM QUILT MAKER Encounter for imaging to screen for metal prior to MRI COLONOSCOPY 09/14/2022 from Last 3 Months or Most Recently Relevant to Health Maintenance Results * US ABDOMEN LIMITED (12/25/2024 9:08 AM QUILT MAKER) Anatomical Region Laterality Modality Abdomen Ultrasound 12/25/2024 10:2 9 AM QUILT MAKER Impressions 12/25/2024 10:30 AM QUILT MAKER IMPRESSION: Fatty liver. No cholelithiasis or cholecystitis > Interpreting Provider: Janes Oakley MD on 12/25/2024 10:30 AM Narrative 12/25/2024 10:30 AM QUILT MAKER PROCEDURE: US ABDOMEN LIMITED DATE/TIME OF EXAM: 12/25/2024 9:08 AM CLINICAL INFORMATION: None relevant/not provided if blank. Indication: R74.8: Elevated liver enzymes Additional History: COMPARISON: None. TECHNIQUE: Real-time ultrasound of the upper abdomen with DICOM image capture performed by medical technologist blood bank. FINDINGS: No intrahepatic ductal dilatation or mass [...] abdomen with DICOM image capture performed by medical technologist blood bank. FINDINGS: No intrahepatic ductal dilatation or mass [...] RATIO URINE RANDOM PANEL (12/16/2024 7:36 AM QUILT MAKER) Creatinine Urine 173.8 mg/dL 12/16/19 12:28 PM QUILT MAKER [facility] Microalbumin Urine 0.8 mg/dL 12/16/2024 12:28 PM QUILT MAKER [facility] Microalbumin/Crea tinine Ratio <5 Normal: <30 mg/g, Microalbum inuria: 30-299 mg/g, Macroalbum inuria: >=300 mg/g mg/g 12/16/2024 12:28 PM QUILT MAKER AM [facility] Urine URINE SPECIMEN OBTAINED BY CLEAN CATCH PROCEDURE / Unknown Collection / Unknown 12/16/2024 7:36 AM QUILT MAKER 12/16/2024 7:36 AM QUILT MAKER Lexy Srivastava MD LAB - URINE CHEMISTR Y ORDERABLES [facility] [address] * (ABNORMAL) HEMOGLOBIN A1C (12/16/2024 7:36 AM QUILT MAKER) Hemoglobin A1c 5.7(H) 4.2 - 5.6 % 12/16/2024 12:27 PM QUILT MAKER [facility] Estimated Average Glucose 117 mg/dL 12/16/2024 12:27 PM QUILT MAKER [facility] Blood BLOOD SPECIMEN WITH EDTA / Unknown Venipuncture / Unknown 12/16/2024 7:36 AM QUILT MAKER 12/16/2024 7:36 AM QUILT MAKER Narrative [facility] - 12/16/2024 12:27 PM QUILT MAKER HbA1c Interpretation: Normal: < 5.7% Pre-diabetes: 5.7-6.4% [...] - CHEMISTRY ROSS CHAUDHARY Performing Organization Address City/[facility] Co de Phone Number [facility] [address] * VITAMIN D 25-HYDROXY (12/16/2024 7:36 AM QUILT MAKER) [facility] Vitamin D, 25 Hydroxy 44.1 30 - 80 ng/mL 12/16/2024 12:41 PM QUILT MAKER [facility] Blood BLOOD SPECIMEN / Unknown Venipuncture / Unknown 12/16/2024 7:36 AM QUILT MAKER 12/16/2024 7:36 AM QUILT MAKER Lexy Srivastava MD LAB - CHEMISTRY ROSS CHAUDHARY Performing Organization Address [facility] Co de Phone Number [facility] [address] * ERYTHROCYTE SEDIMENTATION RATE (12/16/2024 7:36 AM QUILT MAKER) Pathologist [facility] Erythrocyte Sedimentation Rate Automated 4 <20 MM/HR 12/16/2024 12:08 PM [facility] Blood BLOOD SPECIMEN / Unknown Venipuncture / Unknown 12/16/2024 7:36 AM QUILT MAKER 12/16/2024 7:36 AM QUILT MAKER Lexy Srivastava MD LAB - HEMATOLOGY ORD ERABLES Performing Organization Address City/State/[facility] Co de Phone Number [facility] [address] [place], [place] [id number] [place] [address] * CBC WITH DIFFERENTIAL (12/16/2024 7:36 AM QUILT MAKER) Pathologist [facility] WBC 8.5 4.0 - 10.7 x10E9/L 12/16/2024 11:53 AM [facility] RBC Count 4.92 4.30 - 5.80 x10E12/L 12/16/2024 11:53 AM [facility] Hemoglobin 15.0 13.3 - 17.5 g/dL 12/16/2024 11:53 AM [facility] Hematocrit 45.1 38.7 - 51.1 % 12/16/2024 11:53 AM [facility] MCV 91.7 80.0 - 98.0 fL 12/16/2024 11:53 AM [facility] MCH 30.5 26.7 - 33.6 pg 12/16/2024 11:53 AM [facility] MCHC 33.3 31.7 - 36.3 g/dL 12/16/2024 11:53 AM [facility] RDW-CV 12.4 11.3 - 14.8 % 12/16/2024 11:53 AM [facility] Platelet Count 276 150 - 420 x10E9/L 12/16/2024 11:53 AM [facility] MPV 10.2 7.8 - 11.4 fL 12/16/2024 11:53 AM [facility] Neutrophil % 63.1 41.0 - 74.0 % 12/16/2024 11:53 AM [facility] Lymphocyte % 23.6 17.0 - 47.0 % 12/16/2024 11:53 AM QUILT MAKER [facility] Monocyte % 8.3 3.0 - 11.0 % 12/16/2024 11:53 AM [facility] Eosinophil % 4.0 0.0 - 7.0 % 12/16/2024 11:53 AM [facility] Basophil % 0.8 0.0 - 1.6 % 12/16/2024 11:53 AM [facility] Immature Granulocytes % 0.2 0.0 - 1.0 % 12/16/2024 11:53 AM [facility] Neutrophil Absolute 5.37 1.60 - 7.50 x10E9/L 12/16/2024 11:53 AM [facility] Lymphocyte Absolute 2.01 1.00 - 4.40 x10E9/L 12/16/2024 11:53 AM [facility] Monocyte Absolute 0.71 0.15 - 1.00 x10E9/L 12/16/2024 11:53 AM [facility] Eosinophil Absolute 0.34 0.00 - 0.60 x10E9/L 12/16/2024 11:53 AM [facility] Basophil Absolute 0.07 0.00 - 0.13 x10E9/L 12/16/2024 11:53 AM [facility] Blood BLOOD SPECIMEN / Unknown Venipuncture / Unknown 12/16/2024 7:36 AM QUILT MAKER 12/16/2024 7:[address] [facility] Lexy Srivastava MD LAB - HEMATOLOGY ORD ERABLES Performing Organization Address City/State/[facility] Co de Phone Number [facility] [address] [place] [address] * (ABNORMAL) COMPREHENSIVE METABOLIC PANEL (12/16/2024 7:36 AM QUILT MAKER) [facility] Glucose 122 70 - 125 mg/dL 12/16/2024 12:08 PM [facility] Sodium 142 136 - 145 mmol/L 12/16/2024 12:08 PM [facility] Potassium 4.4 3.4 - 5.1 mmol/L 12/16/2024 12:08 PM [facility] Chloride 104 98 - 107 mmol/L 12/16/2024 12:08 PM [facility] CO2 28 22 - 29 mmol/L 12/16/2024 12:08 PM [facility] Calcium 10.19 8.4 - 10.2 mg/dL 12/16/2024 12:08 PM [facility] Anion Gap 10 6 - 16 mmol/L 12/16/2024 12:08 PM [facility] BUN 16.4 8.4 - 25.7 mg/dL 12/16/2024 12:08 PM [facility] Creatinine 1.01 0.72 - 1.25 mg/dL 12/16/2024 12:08 PM [facility] Alkaline Phosphatase 46 40 - 150 U/L 12/16/2024 12:08 PM [facility] ALT 70(H) <=55 U/L 12/16/2024 12:08 PM [facility] AST 54(H) 5 - 34 U/L 12/16/2024 12:08 PM [facility] Protein Total 8.0 6.4 - 8.3 gm/dL 12/16/2024 12:08 PM [facility] Albumin 4.4 3.4 - 4.8 gm/dL 12/16/2024 12:08 PM [facility] Globulin Total 3.6 2.6 - 4.0 gm/dL 12/16/2024 12:08 PM [facility] Albumin/Globulin Ratio 1.2 0.9 - 1.6 12/16/2024 12:08 PM [facility] Bilirubin Total 0.8 0.2 - 1.2 mg/dL 12/16/2024 12:08 PM [facility] eGFR 83(L) >90 mL/min/1.7 3m2 12/16/2024 12:08 PM [facility] Comment:The GFR result was c alculated using the updated CKD-EPI Creatinine Equation (2020). Blood BLOOD SPECIMEN / Unknown Venipuncture / Unknown 12/16/2024 7:36 AM QUILT MAKER 12/16/2024 7:[address] [facility] Lexy Srivastava MD LAB - CHEMISTRY ROSS CHAUDHARY [facility] Organization Address City/State/ZIP Co de Phone Number [facility] [address] * (ABNORMAL) LIPID PROFILE (12/16/2024 7:[address] [facility]) Cholesterol 156 <200 mg/dL 12/16/2024 12:08 PM QUILT MAKER [facility] Triglycerides 109 <150 mg/dL 12/16/2024 12:08 PM QUILT MAKER [facility] HDL Cholesterol 38(L) >40 mg/dL 12:08 PM QUILT MAKER [facility] Chol HDL Ratio 4.1 1.0 - 6.0 12/16/2024 12:[address] [facility] LDL Calculated 96 65 - 130 mg/dL 12/16/2024 12:08 PM QUILT MAKER [facility] VLDL Calculated 22 <=30 mg/dL 12:[address] [facility] Blood BLOOD SPECIMEN / Unknown Venipuncture / Unknown 12/16/2024 7:36 AM QUILT MAKER 12/16/2024 7:[address] [facility] Narrative [facility] - 12/16/2024 12:[address] [facility] Lipid Profile Comment: CHOLESTEROL LEVEL..................CLINICAL INTERPRETATION [...] Srivastava MD LAB - CHEMISTRY ROSS CHAUDHARY [facility] [address] [place], [place] [address] * IMAGING RADIOLOGY XRAY RESULTS ORDER (12/04/2024) Anatomical Region Laterality Modality Other 12/04/2024 Narrative 12/04/2024 Ordered by an unspecified provider. Scanned Document IMAGING * MRI LUMBAR SPINE W WO CONTRAST [id number] (10/20/2024 7:02 PM QUILT MAKER) Anatomical Region Laterality Modality Spine Magnetic Resonan ce 10/24/2024 1:34 PM QUILT MAKER Impressions 10/24/2024 1:45 PM QUILT MAKER IMPRESSION: 1. New left foraminal disc extrusion [...] 10/24/2024 1:45 PM Narrative 10/24/2024 1:45 PM QUILT MAKER PROCEDURE: MRI LUMBAR SPINE WWO CONTRAST DATE/TIME [...] soft tissues are unremarkable. Procedure Note Tenzin Markham, - 10/24/2024 PROCEDURE: MRI LUMBAR SPINE WWO [...] MR ORDERABLES * XR EYE FOREIGN BODY [id number] (10/20/2024 5:40 PM QUILT MAKER) Anatomical Region Laterality Modality Head Computed Radiogr aphy 10/20/2024 5:51 PM QUILT MAKER Impressions 10/20/2024 5:52 PM QUILT MAKER IMPRESSION: Examination is negative for foreign body. > Interpreting Provider: Janes Oakley MD on 10/20/2024 5:52 PM Narrative 10/20/2024 5:52 PM QUILT MAKER PROCEDURE: XR ORBITS SCREEN FOR MRI 10/20/2024 [...] Recently Relevant to Health Maintenance Care Teams Stitching Machine Operator Relationship Specialty Start Date End Date Lexy Srivastava MD [facility] [place] [address] PCP - General Internal Medicine 12/15/24
== END 2025-01-08 12:23 | disposition home or self-care (01) ==
PROVIDERS: Visit Provider Urology
DX: N20.0 Calculus of kidney (principal); R16.2 Hepatomegaly with splenomegaly, not elsewhere classified
CPT/HCPCS: 74018; 74176